=== PATIENT | female | born 1935 | race Caucasian/White ===

== ENCOUNTER 2017-07-21 21:25 | Inpatient (IN) | payer MEDICARE, BC ==
--- NOTE | 2017-07-21 21:35 | ED ---
General Adult HPI - General Stated complaint: Altered Mental Status Time Seen by Provider: 07/21/17 21:31 Source: RN notes reviewed, old records reviewed - History of Present Illness Initial comments: This is a 3-year-old female here for evaluation. Patient closely for evaluation regarding arthrosis, family states she is just on her normal mental state. Patient does answer questions, does know where she is, family states she was not answering all questions well at home. Patient subsequently had a chest pain shortness with her bowel pain, dispensed not taking her medications today. - Related Data Home Medications Medication Instructions Recorded Confirmed Acetaminophen [Tylenol Extra 500 mg PO DAILY PRN 07/21/17 07/21/17 Strength] Anastrozole [Arimidex] 1 mg PO DAILY 07/21/17 07/21/17 Atenolol 25 mg PO DAILY 07/21/17 07/21/17 Budesonide [Pulmicort] 0.5 mg INHALATION RT-BID 07/21/17 07/22/17 Cholecalciferol [Vitamin D3] 1,000 unit PO DAILY 07/21/17 07/21/17 Hydrocodone/Acetaminophen [[place] 1 tab PO DAILY 07/21/17 07/21/17 7.5-325] Ipratropium-Albuterol Nebulize 3 ml INHALATION RT-TID 07/21/17 07/22/17 [Duoneb 0.5 mg-3 mg/3 ml Soln] Omeprazole [PriLOSEC] 20 mg PO DAILY 07/21/17 07/21/17 Simvastatin [Zocor] 20 mg PO SUTH 07/21/17 07/21/17 Zolpidem [Ambien] 10 mg PO HS 07/21/17 07/21/17 predniSONE 1 mg PO Q48H 07/21/17 07/21/17 Previous Rx's Medication Instructions Recorded Cefuroxime [Ceftin] 250 mg PO BID #14 tablet 07/24/17 Insulin Detemir [Levemir Flextouch] 35 unit SQ DAILY #0 07/24/17 Insulin Lispro [humaLOG Kwikpen] 9 unit SQ TID-W/MEALS #0 07/24/17 Losartan [Cozaar] 100 mg PO DAILY #30 tab 07/24/17 Allergies Allergy/AdvReac Type Severity Reaction Status Date / Time cortisone Allergy Rash/Hives Verified 07/21/17 22:21 aspirin AdvReac Unknown Verified 07/21/17 22:21 Review of Systems ROS Statement: Those systems with pertinent positive or pertinent negative responses have been documented in the HPI. ROS Other: All systems not noted in ROS Statement are negative. Past Medical History - Past Family History Mother Family Medical History: Dementia Additional Family Medical History / Comment(s): Mother at age 90 with history of diabetes and hypertension. Father Additional Family Medical History / Comment(s): Father at age 90 possibly just from old age. Brother(s) Additional Family Medical History / Comment(s): Patient has 3 brothers and one sister with strong history of diabetes and hypertension. She has one brother with history of kidney stones. Daughter(s) Additional Family Medical History / Comment(s): Patient has one daughter with history of hypothyroidism, hypertension and hyperlipidemia. Son(s) Additional Family Medical History / Comment(s): Patient has 2 sons and one has history of osteoarthritis and one of bipolar. General Exam General appearance: alert, in no apparent distress Head exam: Present: atraumatic, normocephalic, normal inspection Eye exam: Present: normal appearance, PERRL, EOMI. Absent: scleral icterus, conjunctival injection, periorbital swelling ENT exam: Present: normal exam, mucous membranes moist Neck exam: Present: normal inspection. Absent: tenderness, meningismus, lymphadenopathy Respiratory exam: Present: normal lung sounds bilaterally. Absent: respiratory distress, wheezes, rales, rhonchi, stridor Cardiovascular Exam: Present: regular rate, normal rhythm, normal heart sounds. Absent: systolic murmur, diastolic murmur, rubs, gallop, clicks GI/Abdominal exam: Present: soft, normal bowel sounds. Absent: distended, tenderness, guarding, rebound, rigid Extremities exam: Present: normal inspection, full ROM, normal capillary refill. Absent: tenderness, pedal edema, joint swelling, calf tenderness Back exam: Present: normal inspection Neurological exam: Present: alert, oriented X3, CN II-XII intact Psychiatric exam: Present: normal affect, normal mood Skin exam: Present: warm, dry, intact, normal color. Absent: rash Course Vital Signs 07/21/17 07/21/17 07/21/17 21:50 22:15 22:50 Temperature 97.9 F Pulse Rate 78 74 71 Respiratory 24 22 24 Rate Blood Pressure 164/97 172/70 217/101 O2 Sat by Pulse 99 100 98 Oximetry 07/21/17 07/22/17 23:00 00:00 Temperature 100.2 F H Pulse Rate 72 72 Respiratory 20 Rate Blood Pressure 178/82 160/74 O2 Sat by Pulse 100 99 Oximetry EKG Findings - EKG Comments: EKG Findings:: EKG shows normal sinus rhythm rate of 78, NE 180, QRS 76, QTc 467 Medical Decision Making - Medical Decision Making 82 female the ER for evaluation of altered mental status. Multiple electrolyte abnormalities and severe dehydration. Facial be admitted for resuscitation - Lab Data Result diagrams: 07/23/17 08:29 07/24/17 07:04 Lab Results 07/21/17 07/21/17 07/21/17 Range/Units 21:35 21:36 21:36 WBC 8.5 (3.8-10.6) k/uL RBC 4.34 (3.80-5.40) m/uL Hgb 12.8 (11.4-16.0) gm/dL Hct 39.7 (34.0-46.0) % MCV 91.4 (80.0-100.0) fL MCH 29.5 (25.0-35.0) pg MCHC 32.2 (31.0-37.0) g/dL RDW 13.8 (11.5-15.5) % Plt Count 181 (150-450) k/uL Neutrophils % 67 % Lymphocytes % 21 % Monocytes % 8 % Eosinophils % 1 % Basophils % 0 % Neutrophils # 5.6 (1.3-7.7) k/uL Lymphocytes # 1.8 (1.0-4.8) k/uL Monocytes # 0.6 (0-1.0) k/uL Eosinophils # 0.1 (0-0.7) k/uL Basophils # 0.0 (0-0.2) k/uL Hypochromasia Moderate PT (9.0-12.0) sec INR (<1.2) APTT (22.0-30.0) sec Sodium (137-145) mmol/L Potassium (3.5-5.1) mmol/L Chloride (98-107) mmol/L Carbon Dioxide (22-30) mmol/L Anion Gap mmol/L BUN (7-17) mg/dL Creatinine (0.52-1.04) mg/dL Est GFR (MDRD) Af Amer (>60 ml/min/1.73 sqM) Est GFR (MDRD) Non-Af (>60 ml/min/1.73 sqM) Glucose (74-99) mg/dL POC Glucose (mg/dL) 337 H (75-99) mg/dL POC Glu Support Specialist ID Katharine Bergman Lactic Ac Sepsis Rflx Plasma Lactic Acid Deny (0.7-2.0) mmol/L Calcium (8.4-10.2) mg/dL Phosphorus (2.5-4.5) mg/dL Magnesium (1.6-2.3) mg/dL Total Bilirubin (0.2-1.3) mg/dL AST (14-36) U/L ALT (9-52) U/L Alkaline Phosphatase (38-126) U/L Total Creatine Kinase 136 H (30-135) U/L CK-MB (CK-2) 1.9 (0.0-2.4) ng/mL CK-MB (CK-2) Rel Index 1.4 Troponin I <0.012 (0.000-0.034) ng/mL NT-Pro-B Natriuret Pep pg/mL Total Protein (6.3-8.2) g/dL Albumin (3.5-5.0) g/dL Urine Color Urine Appearance (Clear) Urine pH (5.0-8.0) Ur Specific [place] (1.001-1.035) Urine Protein (Negative) Urine Glucose (UA) (Negative) Urine Ketones (Negative) Urine Blood (Negative) Urine Nitrite (Negative) Urine Bilirubin (Negative) Urine Urobilinogen (<2.0) mg/dL Ur Leukocyte Esterase (Negative) Urine RBC (0-5) /hpf Urine WBC (0-5) /hpf Ur Squamous Epith Cells (0-4) /hpf Hyaline Casts (0-2) /lpf 07/21/17 07/21/17 07/21/17 Range/Units 21:36 21:36 21:36 WBC (3.8-10.6) k/uL RBC (3.80-5.40) m/uL Hgb (11.4-16.0) gm/dL Hct (34.0-46.0) % MCV (80.0-100.0) fL MCH (25.0-35.0) pg MCHC (31.0-37.0) g/dL RDW (11.5-15.5) % Plt Count (150-450) k/uL Neutrophils % % Lymphocytes % % Monocytes % % Eosinophils % % Basophils % % Neutrophils # (1.3-7.7) k/uL Lymphocytes # (1.0-4.8) k/uL Monocytes # (0-1.0) k/uL Eosinophils # (0-0.7) k/uL Basophils # (0-0.2) k/uL Hypochromasia PT (9.0-12.0) sec INR (<1.2) APTT (22.0-30.0) sec Sodium 133 L (137-145) mmol/L Potassium 4.6 (3.5-5.1) mmol/L Chloride 95 L (98-107) mmol/L Carbon Dioxide 25 (22-30) mmol/L Anion Gap 13 mmol/L BUN 26 H (7-17) mg/dL Creatinine 1.89 H (0.52-1.04) mg/dL Est GFR (MDRD) Af Amer 31 (>60 ml/min/1.73 sqM) Est GFR (MDRD) Non-Af 25 (>60 ml/min/1.73 sqM) Glucose 372 H (74-99) mg/dL POC Glucose (mg/dL) (75-99) mg/dL POC Glu Support Specialist ID Lactic Ac Sepsis Rflx Plasma Lactic Acid Deny 3.3 H* (0.7-2.0) mmol/L Calcium 9.5 (8.4-10.2) mg/dL Phosphorus 3.3 (2.5-4.5) mg/dL Magnesium 0.7 L* (1.6-2.3) mg/dL Total Bilirubin 0.5 (0.2-1.3) mg/dL AST 25 (14-36) U/L ALT 32 (9-52) U/L Alkaline Phosphatase 55 (38-126) U/L Total Creatine Kinase (30-135) U/L CK-MB (CK-2) (0.0-2.4) ng/mL CK-MB (CK-2) Rel Index Troponin I (0.000-0.034) ng/mL NT-Pro-B Natriuret Pep 491 pg/mL Total Protein 6.7 (6.3-8.2) g/dL Albumin 4.0 (3.5-5.0) g/dL Urine Color Urine Appearance (Clear) Urine pH (5.0-8.0) Ur Specific [place] (1.001-1.035) Urine Protein (Negative) Urine Glucose (UA) (Negative) Urine Ketones (Negative) Urine Blood (Negative) Urine Nitrite (Negative) Urine Bilirubin (Negative) Urine Urobilinogen (<2.0) mg/dL Ur Leukocyte Esterase (Negative) Urine RBC (0-5) /hpf Urine WBC (0-5) /hpf Ur Squamous Epith Cells (0-4) /hpf Hyaline Casts (0-2) /lpf 07/21/17 07/21/17 07/21/17 Range/Units 21:36 22:40 22:47 WBC (3.8-10.6) k/uL RBC (3.80-5.40) m/uL Hgb (11.4-16.0) gm/dL Hct (34.0-46.0) % MCV (80.0-100.0) fL MCH (25.0-35.0) pg MCHC (31.0-37.0) g/dL RDW (11.5-15.5) % Plt Count (150-450) k/uL Neutrophils % % Lymphocytes % % Monocytes % % Eosinophils % % Basophils % % Neutrophils # (1.3-7.7) k/uL Lymphocytes # (1.0-4.8) k/uL Monocytes # (0-1.0) k/uL Eosinophils # (0-0.7) k/uL Basophils # (0-0.2) k/uL Hypochromasia PT 11.5 (9.0-12.0) sec INR 1.2 H (<1.2) APTT 24.2 (22.0-30.0) sec Sodium (137-145) mmol/L Potassium (3.5-5.1) mmol/L Chloride (98-107) mmol/L Carbon Dioxide (22-30) mmol/L Anion Gap mmol/L BUN (7-17) mg/dL Creatinine (0.52-1.04) mg/dL Est GFR (MDRD) Af Amer (>60 ml/min/1.73 sqM) Est GFR (MDRD) Non-Af (>60 ml/min/1.73 sqM) Glucose (74-99) mg/dL POC Glucose (mg/dL) (75-99) mg/dL POC Glu Support Specialist ID Lactic Ac Sepsis Rflx Y Plasma Lactic Acid Deny (0.7-2.0) mmol/L Calcium (8.4-10.2) mg/dL Phosphorus (2.5-4.5) mg/dL Magnesium (1.6-2.3) mg/dL Total Bilirubin (0.2-1.3) mg/dL AST (14-36) U/L ALT (9-52) U/L Alkaline Phosphatase (38-126) U/L Total Creatine Kinase (30-135) U/L CK-MB (CK-2) (0.0-2.4) ng/mL CK-MB (CK-2) Rel Index Troponin I (0.000-0.034) ng/mL NT-Pro-B Natriuret Pep pg/mL Total Protein (6.3-8.2) g/dL Albumin (3.5-5.0) g/dL Urine Color Yellow Urine Appearance Clear (Clear) Urine pH 6.5 (5.0-8.0) Ur Specific [place] 1.012 (1.001-1.035) Urine Protein 2+ H (Negative) Urine Glucose (UA) 4+ H (Negative) Urine Ketones Negative (Negative) Urine Blood Negative (Negative) Urine Nitrite Negative (Negative) Urine Bilirubin Negative (Negative) Urine Urobilinogen <2.0 (<2.0) mg/dL Ur Leukocyte Esterase Negative (Negative) Urine RBC <1 (0-5) /hpf Urine WBC 1 (0-5) /hpf Ur Squamous Epith Cells <1 (0-4) /hpf Hyaline Casts 3 H (0-2) /lpf - Radiology Data Radiology results: report reviewed (CT brain, x-ray chest negative for acute disease), image reviewed Disposition Clinical Impression: Altered mental status, Hypomagnesemia, ARF (acute renal failure) Disposition: ADMITTED IP TO THIS [facility] Condition: Good
[2017-07-21 21:36] LABS: Glucose,Whole Blood 337 mg/dL (75-99)
[2017-07-21] MEDS ORDERED: SODIUM CHLORIDE 0.9% 1,000 ML IV STA ×2 (21:41→23:40)
[2017-07-21] MEDS ORDERED: SODIUM CHLORIDE 0.9% 500 ML IV STA (21:41)
[2017-07-21] MEDS ORDERED: LABETALOL 5 MG/ML VIAL MDV IVP STA (21:41)
[2017-07-21 22:13] LABS: Appearance,Urine Clear (Clear); Basophils % (A) 0 %; Bilirubin,Urine Negative (Negative); CH 27.9; CHCM 30.6; Eosinophils # (A) 0.1 k/uL (0-0.7); Eosinophils % (A) 1 %; Glucose,Urine (UA) 4+ (Negative); HCT 39.7 % (34.0-46.0); HDW 2.82; HGB 12.8 gm/dL (11.4-16.0); Hypochromasia Moderate; Ketones,Urine Negative (Negative); Leukocyte Esterase,Urine Negative (Negative); Luc # (Auto) 0.31; Luc % (Auto) 4; Lymphocytes # (A) 1.8 k/uL (1.0-4.8); Lymphocytes % (A) 21 %; MCH 29.5 pg (25.0-35.0); MCHC 32.2 g/dL (31.0-37.0); MCV 91.4 fL (80.0-100.0); Mean Platelet Volume 7.1; Monocytes # (A) 0.6 k/uL (0-1.0); Monocytes % (A) 8 %; Neutrophils # (A) 5.6 k/uL (1.3-7.7); Neutrophils % (A) 67 %; Nitrite,Urine Negative (Negative); PH, Urine 6.5 (5.0-8.0); Particle Count 6660; Protein,Urine 2+ (Negative); RBC 4.34 m/uL (3.80-5.40); RBC,Urine <1 /hpf (0-5); RDW 13.8 % (11.5-15.5); Specific Gravity,Urine 1.012 (1.001-1.035); Squamous Epithelial Cell,Urine <1 /hpf (0-4); UA Billing (MACRO vs. MICRO) MICRO; Urobilinogen,Urine <2.0 mg/dL (<2.0); WBC 8.5 k/uL (3.8-10.6); WBC (Perox) 7.97; WBC,Urine 1 /hpf (0-5)
[2017-07-21 22:20] LABS: Calcium 9.5 mg/dL (8.4-10.2); Phosphorous 3.3 mg/dL (2.5-4.5); Potassium 4.6 mmol/L (3.5-5.1); Total Bilirubin 0.5 mg/dL (0.2-1.3); Total Protein 6.7 g/dL (6.3-8.2)
[2017-07-21 22:26] LABS: Magnesium 0.7 mg/dL (1.6-2.3)
[2017-07-21 22:35] LABS: Creatine Kinase 136 U/L (30-135)
--- NOTE | 2017-07-21 22:45 | XR ---
EXAM: XR Chest, 2 Views CLINICAL HISTORY: Reason: Weakness TECHNIQUE: Frontal and lateral views of the chest. COMPARISON: No relevant prior studies available. FINDINGS: Lungs: Prominent lung markings. No focal consolidation. Pleural space: Unremarkable. No pneumothorax. Heart: Borderline enlarged cardiomediastinal silhouette. Mediastinum: See above. Bones/joints: Postsurgical changes in the left shoulder and right anterior chest. Other findings: Senescent changes. IMPRESSION: Prominent lung markings. No focal consolidation.
[2017-07-21 22:47] LABS: Creatine Kinase MB 1.9 ng/mL (0.0-2.4); Troponin I <0.012 ng/mL (0.000-0.034)
[2017-07-21] MEDS: MAGNESIUM SULFATE-D5W PMX 1 GM in DEXTROSE/WATER 1 100ML.BAG IVPB SCH (23:02)
[2017-07-21 23:13] LABS: INR 1.2 (<1.2); Partial Thromboplastin Time 24.2 sec (22.0-30.0); Prothrombin Time 11.5 sec (9.0-12.0)
[2017-07-21] MEDS ORDERED: FLUCONAZOLE 150 MG TAB PO STA (23:27)
--- NOTE | 2017-07-21 23:39 | CT ---
EXAM: CT Head Without Intravenous Contrast CLINICAL HISTORY: Reason: weakness TECHNIQUE: Axial computed tomography images of the head/brain without intravenous contrast. CTDI is 59.58 mGy and DLP is 1103 mGy-cm. This CT exam was performed using one or more of the following dose reduction techniques: automated exposure control, adjustment of the mA and/or kV according to patient size, and/or use of iterative reconstruction technique. COMPARISON: None. FINDINGS: Brain: Evaluation limited by artifact. Scattered mild white matter hypoattenuation, which is nonspecific but is likely secondary to chronic microvascular ischemic change. No midline shift, mass effect, or hemorrhage. No acute cortical infarct. Ventricles: Unremarkable. Bones/joints: Hyperostosis frontalis interna, a benign finding. No acute fracture. Soft tissues: Unremarkable. Vasculature: Cerebrovascular atherosclerosis. Sinuses: Minimal sinus disease. Mastoid air cells: Small mastoid fluid. IMPRESSION: 1. No acute intracranial process. If there is concern for acute ischemia, MRI may be considered. 2. Chronic changes as above.
[2017-07-21] MEDS ORDERED: SODIUM CHLORIDE 0.9% 1,000 ML IV ONE (23:40)
[2017-07-21] MEDS ORDERED: ACETAMINOPHEN TAB 325 MG TAB PO PRN (23:55)
[2017-07-22 02:02] LABS: Glucose,Whole Blood 311 mg/dL (75-99)
[2017-07-22] MEDS: MAGNESIUM SULFATE-D5W PMX 1 GM in DEXTROSE/WATER 1 100ML.BAG IVPB SCH ×3 (02:06→05:16)
[2017-07-22] MEDS: INSULIN LISPRO (humaLOG) 300 UNIT/3 ML VIAL SQ SCH ×7 (02:08→20:49)
[2017-07-22 07:25] LABS: Glucose,Whole Blood 225 mg/dL (75-99)
[2017-07-22] MEDS ORDERED: ENOXAPARIN 40 MG/0.4 ML SYRINGE SQ SCH (09:00)
[2017-07-22 11:05] LABS: Hemoglobin A1C 11.1 % (4.2-6.1)
[2017-07-22] MEDS ORDERED: ACETAMINOPHEN TAB 500 MG TAB PO PRN (11:27)
[2017-07-22 12:31] LABS: Glucose,Whole Blood 200 mg/dL (75-99)
[2017-07-22] MEDS: ANASTROZOLE 1 MG TAB PO SCH (13:28)
[2017-07-22] MEDS: ATENOLOL 25 MG TAB PO SCH (13:28)
[2017-07-22] MEDS: FLUCONAZOLE 150 MG TAB PO SCH (13:28)
[2017-07-22] MEDS: LOSARTAN 50 MG TAB PO SCH (13:28)
[2017-07-22] MEDS: predniSONE 1 MG TAB PO SCH (13:28)
--- NOTE | 2017-07-22 14:12 | P.HPIM ---
History of Present Illness H&P Date: 07/22/17 Chief Complaint: Mental status changes This is an 82-year-old female patient of Dr. Jorge Quevedo with a past medical history for diabetes mellitus type 2, hypertension, rheumatoid arthritis, breast cancer status post lumpectomy on the right with lymph node dissection which were negative. She had to have repeat surgery to complete margins. She has refused radiation treatment. Patient just saw Dr. Quevedo on for bladder infection and started on ciprofloxacin. Insulins were adjusted so that she would take Levemir 80 units daily and Humalog 20 units with supper. Her states that she went to bed and was sleeping and he went into the bedroom to check on her. She was trying to get out of bed and he could not help her if she was too heavy. He called his daughter. The patient did not recognize her or her daughter and 911 was called and patient was brought into [facility] emergency center for evaluation. Her blood sugar was 396 by EMS and BUN was found to be 26 with a creatinine of 1.89. Patient was admitted to the Medr floor for acute renal failure and metabolic encephalopathy and urinary tract infection. She will be continued on Rocephin. Patient states her mental status is much improved today and she is feeling back to her normal self. She was started on Diflucan for vaginal yeast infection as well. Review of Systems All systems: negative Constitutional: Reports lethargy, Reports malaise, Reports weakness, Denies chills, Denies fatigue, Denies fever Eyes: denies blurred vision, denies pain Ears, nose, mouth and throat: Denies dental pain, Denies headache, Denies mouth pain, Denies sore throat Cardiovascular: Denies chest pain, Denies decreased exercise tolerance, Denies dyspnea on exertion, Denies edema, Denies leg edema, Denies lightheadedness, Denies shortness of breath, Denies syncope Respiratory: Denies cough, Denies cough with sputum, Denies dyspnea, Denies excessive sputum, Denies hemoptysis, Denies home oxygen, Denies wheezing Gastrointestinal: Denies abdominal pain, Denies diarrhea, Denies nausea, Denies vomiting Genitourinary: Reports dysuria, Denies hematuria Musculoskeletal: Denies myalgias Integumentary: Denies pruritus, Denies rash, Denies wounds Neurological: Reports confusion, Reports gait dysfunction, Denies numbness, Denies weakness Psychiatric: Denies anxiety, Denies depression Endocrine: Denies fatigue, Denies weight change Past Medical History Past Medical History: Cancer, Diabetes Mellitus, Hypertension, Rheumatoid Arthritis (RA) Additional Past Medical History / Comment(s): breast cancer History of Any Multi-Drug Resistant Organisms: None Reported Past Surgical History: Joint Replacement Additional Past Surgical History / Comment(s): left shoulder replacement, right breast lumpectomy and lymph node removal with repeat surgery to obtain full margins, left total knee arthroplasty 2, bilateral cataract removal and intraocular lens implants, right eye had an injection recently Past Anesthesia/Blood Transfusion Reactions: No Reported Reaction Past Psychological History: No Psychological Hx Reported Smoking Status: Former smoker Past Alcohol Use History: None Reported Additional Past Alcohol Use History / Comment(s): Patient was a smoker one pack per day for 30 years and quit in 1995. She denies any alcohol use. She resides at home with her and they recently moved to [facility] and have home care in place. Past Drug Use History: None Reported - Past Family History Mother Family Medical History: Dementia Additional Family Medical History / Comment(s): Mother at age 90 with history of diabetes and hypertension. Father Additional Family Medical History / Comment(s): Father at age 90 possibly just from old age. Brother(s) Additional Family Medical History / Comment(s): Patient has 3 brothers and one sister with strong history of diabetes and hypertension. She has one brother with history of kidney stones. Daughter(s) Additional Family Medical History / Comment(s): Patient has one daughter with history of hypothyroidism, hypertension and hyperlipidemia. Son(s) Additional Family Medical History / Comment(s): Patient has 2 sons and one has history of osteoarthritis and one of bipolar. Medications and Allergies Home Medications Medication Instructions Recorded Confirmed Type Acetaminophen [Tylenol Extra 500 mg PO DAILY PRN 07/21/17 07/21/17 History Strength] Anastrozole [Arimidex] 1 mg PO DAILY 07/21/17 07/21/17 History Atenolol 25 mg PO DAILY 07/21/17 07/21/17 History Budesonide [Pulmicort] 0.5 mg INHALATION RT-BID 07/21/17 07/22/17 History Cholecalciferol [Vitamin D3] 1,000 unit PO DAILY 07/21/17 07/21/17 History Ciprofloxacin HCl [Cipro] 500 mg PO BID 07/21/17 07/21/17 History Hydrocodone/Acetaminophen [[place] 1 tab PO DAILY 07/21/17 07/21/17 History 7.5-325] Insulin Detemir [Levemir Flextouch] 80 unit SQ DAILY 07/21/17 07/21/17 History Insulin Lispro [humaLOG Kwikpen] 20 unit SQ W/SUPPER 07/21/17 07/21/17 History Ipratropium-Albuterol Nebulize 3 ml INHALATION RT-TID 07/21/17 07/22/17 History [Duoneb 0.5 mg-3 mg/3 ml Soln] Losartan/Hydrochlorothiazide 1 tab PO DAILY 07/21/17 07/21/17 History [Hyzaar 100-25 Tablet] Omeprazole [PriLOSEC] 20 mg PO DAILY 07/21/17 07/21/17 History Simvastatin [Zocor] 20 mg PO SUTH 07/21/17 07/21/17 History Zolpidem [Ambien] 10 mg PO HS 07/21/17 07/21/17 History predniSONE 1 mg PO Q48H 07/21/17 07/21/17 History Allergies Allergy/AdvReac Type Severity Reaction Status Date / Time cortisone Allergy Rash/Hives Verified 07/21/17 22:21 aspirin AdvReac Unknown Verified 07/21/17 22:21 Physical Exam Vitals: Vital Signs Temp Pulse Pulse Resp BP BP Pulse Ox 07/22/17 07:00 97.6 F 59 L 16 156/79 100 07/22/17 02:48 16 07/22/17 00:29 97.1 F L 73 16 153/83 98 07/22/17 00:00 100.2 F H 72 20 160/74 99 07/21/17 23:00 72 178/82 100 07/21/17 22:50 71 24 217/101 98 07/21/17 22:15 74 22 172/70 100 07/21/17 21:50 97.9 F 78 24 164/97 99 Intake and Output 07/21/17 07/22/17 07/22/17 22:59 06:59 14:59 Other: Voiding Method Bedpan # Voids 4 1 Weight 90.718 kg Gen: This is an 82-year-old female. She is sitting up in bed and appears to be comfortable. No acute distress noted. HEENT: Head is atraumatic, normocephalic. Pupils equal, round. Sclerae is anicteric. Conjunctiva slightly pale. Extremities of the mouth are slightly dry. NECK: Supple. No JVD. No lymphadenopathy. No thyromegaly. LUNGS: Clear to auscultation. No wheezes or rhonchi. No intercostal retractions. HEART: Regular rate and rhythm. No murmur. ABDOMEN: Soft. Bowel sounds are present. No masses. No tenderness. EXTREMITIES: No pedal edema. No calf tenderness. Dorsalis pedis +2 bilaterally. NEUROLOGICAL: Patient is awake, alert and oriented x3. Cranial nerves 2 through 12 are grossly intact. Results CBC & Chem 7: 07/21/17 21:36 07/21/17 21:36 Labs: Abnormal Lab Results - Last 24 Hours (Table) 07/21/17 07/21/17 07/21/17 Range/Units 21:35 21:36 21:36 INR (<1.2) Sodium 133 L (137-145) mmol/L Chloride 95 L (98-107) mmol/L BUN 26 H (7-17) mg/dL Creatinine 1.89 H (0.52-1.04) mg/dL Glucose 372 H (74-99) mg/dL POC Glucose (mg/dL) 337 H (75-99) mg/dL Hemoglobin A1c (4.2-6.1) % Plasma Lactic Acid Deny (0.7-2.0) mmol/L Magnesium 0.7 L* (1.6-2.3) mg/dL Total Creatine Kinase 136 H (30-135) U/L Urine Protein (Negative) Urine Glucose (UA) (Negative) Hyaline Casts (0-2) /lpf 07/21/17 07/21/17 07/21/17 Range/Units 21:36 21:36 22:47 INR 1.2 H (<1.2) Sodium (137-145) mmol/L Chloride (98-107) mmol/L BUN (7-17) mg/dL Creatinine (0.52-1.04) mg/dL Glucose (74-99) mg/dL POC Glucose (mg/dL) (75-99) mg/dL Hemoglobin A1c (4.2-6.1) % Plasma Lactic Acid Deny 3.3 H* (0.7-2.0) mmol/L Magnesium (1.6-2.3) mg/dL Total Creatine Kinase (30-135) U/L Urine Protein 2+ H (Negative) Urine Glucose (UA) 4+ H (Negative) Hyaline Casts 3 H (0-2) /lpf 07/22/17 07/22/17 07/22/17 Range/Units 01:55 01:59 07:06 INR (<1.2) Sodium (137-145) mmol/L Chloride (98-107) mmol/L BUN (7-17) mg/dL Creatinine (0.52-1.04) mg/dL Glucose (74-99) mg/dL POC Glucose (mg/dL) 311 H 225 H (75-99) mg/dL Hemoglobin A1c 11.1 H (4.2-6.1) % Plasma Lactic Acid Deny (0.7-2.0) mmol/L Magnesium (1.6-2.3) mg/dL Total Creatine Kinase (30-135) U/L Urine Protein (Negative) Urine Glucose (UA) (Negative) Hyaline Casts (0-2) /lpf Microbiology - Last 24 Hours (Table) 07/21/17 21:36 Urine Culture - Preliminary Urine,Catheterized Thrombosis Risk Factor Assmnt - DVT/VTE Prophylaxis DVT/VTE Prophylaxis: Pharmacologic Prophylaxis ordered - Choose All That Apply Each Factor Represents 1 point: Obesity (BMI >25) Thrombosis Risk Factor Assessment Total Risk Factor Score: 1 Thrombosis Risk Factor Assessment Level: Low Risk Assessment and Plan Plan: 1. Metabolic encephalopathy secondary to urinary tract infection, urgent hypertension requiring IV labetalol and acute kidney injury. Patient's mental status is near baseline. 2. Urinary tract infection with possible early sepsis status post IV fluid resuscitation. Patient was on ciprofloxacin which will be discontinued. Ceftriaxone will be continued. Urine culture is in progress. 3. Urgent hypertension in patient with history of hypertension. Patient was given labetalol in the emergency center. Continue atenolol 25 mg daily, losartan 100 mg daily. Hydrochlorothiazide discontinued. 4. Acute kidney injury. Hydrochlorothiazide discontinued. Continue gentle rehydration. Recheck lab work in the morning. 5. Vaginal yeast infection. Diflucan 150 mg daily 3 doses. 6. Diabetes mellitus type 2, insulin requiring. Levemir will be changed to 30 units daily continue Humalog at 9 units with meals and per scale. 7. Breast cancer. Continue Arimidex 1 mg daily. 8. Hyperlipidemia. Continue Lipitor 10 mg twice weekly. 9. Mild persistent asthma. Continue DuoNeb treatments and Pulmicort. 10. Gastroesophageal reflux disease. Continue Prilosec 20 mg daily. 11. Rheumatoid arthritis. Continue prednisone 1 mg every 48 hours. 12. DVT prophylaxis. Continue Lovenox 30 mg daily, dose adjusted for renal function. Patient will be admitted to the hospital for a minimum of 2 night stay. Discharge plan: Most likely return home with homecare. PT and OT. Impression and plan of care have been directed as dictated by the signing physician. Tati Hutton nurse practitioner acting as scribe for signing physician.
[2017-07-22 16:48] LABS: Glucose,Whole Blood 160 mg/dL (75-99)
[2017-07-22] MEDS: SODIUM CHLORIDE 0.9% 1,000 ML IV SCH (18:25)
[2017-07-22] MEDS: INSULIN DETEMIR 100 UNIT/ML 10 ML VIAL SQ SCH (18:25)
[2017-07-22] MEDS: IPRATROPIUM-ALBUTEROL 3 ML NEB INHALATION SCH (19:16)
[2017-07-22] MEDS: BUDESONIDE 0.5 MG/2 ML NEBU INHALATION SCH (19:16)
[2017-07-22] MEDS: HYDROcodone/APAP 7.5-325MG 1 EACH TAB PO SCH (20:49)
[2017-07-22 20:50] LABS: Glucose,Whole Blood 350 mg/dL (75-99)
[2017-07-22] MEDS: ZOLPIDEM 10 MG TAB PO SCH (20:50)
[2017-07-23] MEDS: IPRATROPIUM-ALBUTEROL 3 ML NEB INHALATION SCH ×3 (07:17→19:59)
[2017-07-23] MEDS: BUDESONIDE 0.5 MG/2 ML NEBU INHALATION SCH ×2 (07:17→19:59)
[2017-07-23 07:18] LABS: Glucose,Whole Blood 111 mg/dL (75-99)
[2017-07-23] MEDS: ATENOLOL 25 MG TAB PO SCH (08:02)
[2017-07-23] MEDS: LOSARTAN 50 MG TAB PO SCH (08:02)
[2017-07-23] MEDS: CHOLECALCIFEROL 1,000 UNIT TAB PO SCH (08:02)
[2017-07-23] MEDS: HYDROcodone/APAP 7.5-325MG 1 EACH TAB PO SCH ×2 (08:03→20:33)
[2017-07-23] MEDS: INSULIN LISPRO (humaLOG) 300 UNIT/3 ML VIAL SQ SCH ×8 (08:03→22:40)
[2017-07-23] MEDS: FLUCONAZOLE 150 MG TAB PO SCH (08:03)
[2017-07-23] MEDS: ANASTROZOLE 1 MG TAB PO SCH (08:03)
[2017-07-23] MEDS: INSULIN DETEMIR 100 UNIT/ML 10 ML VIAL SQ SCH (08:04)
[2017-07-23] MEDS: ENOXAPARIN 30 MG/0.3 ML SYRINGE SQ SCH (08:04)
[2017-07-23 08:21] VITALS: RESP 16
[2017-07-23] MEDS ORDERED: INSULIN DETEMIR 100 UNIT/ML 10 ML VIAL SQ SCH (09:00)
[2017-07-23] MEDS ORDERED: ATORVASTATIN 10 MG TAB PO SCH (09:00)
[2017-07-23 09:49] LABS: Calcium 9.1 mg/dL (8.4-10.2); Potassium 4.2 mmol/L (3.5-5.1)
[2017-07-23 10:02] LABS: CH 28.9; CHCM 31.6; HCT 37.6 % (34.0-46.0); HDW 2.74; HGB 11.8 gm/dL (11.4-16.0); Hypochromasia Slight; MCH 28.8 pg (25.0-35.0); MCHC 31.4 g/dL (31.0-37.0); MCV 91.7 fL (80.0-100.0); Mean Platelet Volume 7.8; RDW 14.4 % (11.5-15.5); WBC 7.8 k/uL (3.8-10.6)
--- NOTE | 2017-07-23 11:15 | P.PN ---
Subjective This is an 82-year-old female patient of Dr. Jorge Quevedo with a past medical history for diabetes mellitus type 2, hypertension, rheumatoid arthritis, breast cancer status post lumpectomy on the right with lymph node dissection which were negative. She had to have repeat surgery to complete margins. She has refused radiation treatment. Patient just saw Dr. Quevedo on for bladder infection and started on ciprofloxacin. Insulins were adjusted so that she would take Levemir 80 units daily and Humalog 20 units with supper. Her states that she went to bed and was sleeping and he went into the bedroom to check on her. She was trying to get out of bed and he could not help her if she was too heavy. He called his daughter. The patient did not recognize her or her daughter and 911 was called and patient was brought into [facility] emergency center for evaluation. Her blood sugar was 396 by EMS and BUN was found to be 26 with a creatinine of 1.89. Patient was admitted to the [facility]Sur floor for acute renal failure and metabolic encephalopathy and urinary tract infection. She will be continued on Rocephin. Patient states her mental status is much improved today and she is feeling back to her normal self. She was started on Diflucan for vaginal yeast infection as well. 07/23: Patient states that she slept all night but is still sleepy be this morning. She denies any chest pain or shortness of breath. She okay this morning. She did have a bowel movement she states a vaginal yeast infection is improved. Plan is to increase oral intake and increase activity today. PT has recommended home with homecare. Urine culture remains in progress and patient is on Rocephin. Anticipate discharge in the next 24-48 hours. Objective - Vital Signs Vital signs: Vital Signs Temp 97.8 F 07/23/17 07:00 Pulse 60 07/23/17 07:30 Resp 16 07/23/17 07:00 BP 163/76 07/23/17 07:00 Pulse Ox 97 07/23/17 07:00 Intake & Output 07/22/17 07/23/17 07/23/17 18:59 06:59 18:59 Intake Total 600 800 Balance 600 800 Intake: Intake, IV Titration 800 Amount Sodium Chloride 0.9% 1, 800 000 ml @ 100 mls/hr IV . Q10H STA Rx#:[id number] Oral 600 Other: # Voids 2 2 - Exam Gen: This is an 82-year-old female. She is sitting up in bed and appears to be comfortable. No acute distress noted. HEENT: Head is atraumatic, normocephalic. Pupils equal, round. Sclerae is anicteric. Conjunctiva slightly pale. Extremities of the mouth are slightly dry. NECK: Supple. No JVD. No lymphadenopathy. No thyromegaly. LUNGS: Clear to auscultation. No wheezes or rhonchi. No intercostal retractions. HEART: Regular rate and rhythm. No murmur. ABDOMEN: Soft. Bowel sounds are present. No masses. No tenderness. EXTREMITIES: No pedal edema. No calf tenderness. Dorsalis pedis +2 bilaterally. NEUROLOGICAL: Patient is awake, alert and oriented x3. Cranial nerves 2 through 12 are grossly intact. - Labs CBC & Chem 7: 07/23/17 08:29 07/23/17 08:29 Labs: Abnormal Lab Results - Last 24 Hours (Table) 07/22/17 07/22/17 07/22/17 Range/Units 01:55 12:24 16:46 Creatinine (0.52-1.04) mg/dL Glucose (74-99) mg/dL POC Glucose (mg/dL) 200 H 160 H (75-99) mg/dL Hemoglobin A1c 11.1 H (4.2-6.1) % 07/22/17 07/23/17 07/23/17 Range/Units 20:49 06:52 08:29 Creatinine 1.35 H (0.52-1.04) mg/dL Glucose 183 H (74-99) mg/dL POC Glucose (mg/dL) 350 H 111 H (75-99) mg/dL Hemoglobin A1c (4.2-6.1) % Microbiology - Last 24 Hours (Table) 07/21/17 21:36 Urine Culture - Preliminary Urine,Catheterized Assessment and Plan Plan: 1. Metabolic encephalopathy secondary to urinary tract infection, urgent hypertension requiring IV labetalol and acute kidney injury. Patient's mental status is near baseline. 2. Urinary tract infection with possible early sepsis status post IV fluid resuscitation. Patient was on ciprofloxacin which will be discontinued. Ceftriaxone will be continued. Urine culture is in progress. 3. Urgent hypertension in patient with history of hypertension. Patient was given labetalol in the emergency center. Continue atenolol 25 mg daily, losartan 100 mg daily. Hydrochlorothiazide discontinued. 4. Acute kidney injury. Hydrochlorothiazide discontinued. Continue gentle rehydration. Recheck lab work in the morning. 5. Vaginal yeast infection. Diflucan 150 mg daily 3 doses. 6. Diabetes mellitus type 2, insulin requiring. Levemir will be changed to 30 units daily continue Humalog at 9 units with meals and per scale. 7. Breast cancer. Continue Arimidex 1 mg daily. 8. Hyperlipidemia. Continue Lipitor 10 mg twice weekly. 9. Mild persistent asthma. Continue DuoNeb treatments and Pulmicort. 10. Gastroesophageal reflux disease. Continue Prilosec 20 mg daily. 11. Rheumatoid arthritis. Continue prednisone 1 mg every 48 hours. 12. DVT prophylaxis. Continue Lovenox 30 mg daily, dose adjusted for renal function. Discharge plan: Most likely return home with homecare. PT and OT. Impression and plan of care have been directed as dictated by the signing physician. Tati Hutton nurse practitioner acting as scribe for signing physician.
[2017-07-23] MEDS: SODIUM CHLORIDE 0.9% 1,000 ML IV SCH (11:24)
[2017-07-23 12:03] LABS: Glucose,Whole Blood 124 mg/dL (75-99)
[2017-07-23 12:58] VITALS: BMI 34.3
[2017-07-23 16:54] LABS: Glucose,Whole Blood 152 mg/dL (75-99)
[2017-07-23 20:55] LABS: Glucose,Whole Blood 104 mg/dL (75-99)
[2017-07-24] MEDS: ZOLPIDEM 10 MG TAB PO SCH (01:52)
[2017-07-24 07:32] LABS: Glucose,Whole Blood 183 mg/dL (75-99)
[2017-07-24 07:41] VITALS: BP 148/69; TEMP 97.7
[2017-07-24] MEDS: FLUCONAZOLE 150 MG TAB PO SCH (07:57)
[2017-07-24] MEDS: LOSARTAN 50 MG TAB PO SCH (07:57)
[2017-07-24] MEDS: INSULIN LISPRO (humaLOG) 300 UNIT/3 ML VIAL SQ SCH ×4 (07:57→12:33)
[2017-07-24] MEDS: ENOXAPARIN 30 MG/0.3 ML SYRINGE SQ SCH (07:57)
[2017-07-24] MEDS: HYDROcodone/APAP 7.5-325MG 1 EACH TAB PO SCH (07:58)
[2017-07-24] MEDS: CHOLECALCIFEROL 1,000 UNIT TAB PO SCH (07:58)
[2017-07-24] MEDS: ANASTROZOLE 1 MG TAB PO SCH (07:58)
[2017-07-24] MEDS: ATENOLOL 25 MG TAB PO SCH (07:58)
[2017-07-24] MEDS: SODIUM CHLORIDE 0.9% 1,000 ML IV SCH (07:59)
[2017-07-24] MEDS: INSULIN DETEMIR 100 UNIT/ML 10 ML VIAL SQ SCH (07:59)
[2017-07-24] MEDS: BUDESONIDE 0.5 MG/2 ML NEBU INHALATION SCH (08:17)
[2017-07-24] MEDS: IPRATROPIUM-ALBUTEROL 3 ML NEB INHALATION SCH (08:17)
[2017-07-24 08:27] LABS: Calcium 9.4 mg/dL (8.4-10.2); Potassium 4.4 mmol/L (3.5-5.1)
[2017-07-24 08:33] VITALS: PULSE 56
[2017-07-24 11:59] LABS: Glucose,Whole Blood 90 mg/dL (75-99)
[2017-07-24] MEDS: predniSONE 1 MG TAB PO SCH (12:32)
--- NOTE | 2017-07-26 08:32 | P.DS ---
Providers Date of admission: 07/21/17 23:41 Expected date of discharge: 07/24/17 Attending physician: Bella Dalal Primary care physician: Jorge Quevedo [facility] Course: This is an 82-year-old female patient of Dr. Jorge Quevedo with a past medical history for diabetes mellitus type 2, hypertension, rheumatoid arthritis, breast cancer status post lumpectomy on the right with lymph node dissection which were negative. She had to have repeat surgery to complete margins. She has refused radiation treatment. Patient just saw Dr. Quevedo on for bladder infection and started on ciprofloxacin. Insulins were adjusted so that she would take Levemir 80 units daily and Humalog 20 units with supper. Her states that she went to bed and was sleeping and he went into the bedroom to check on her. She was trying to get out of bed and he could not help her if she was too heavy. He called his daughter. The patient did not recognize her or her daughter and 911 was called and patient was brought into [facility] emergency center for evaluation. Her blood sugar was 396 by EMS and BUN was found to be 26 with a creatinine of 1.89. Patient was admitted to the [facility] floor for acute renal failure and metabolic encephalopathy and urinary tract infection. She will be continued on Rocephin. Patient states her mental status is much improved today and she is feeling back to her normal self. She was started on Diflucan for vaginal yeast infection as well. 07/23: Patient states that she slept all night but is still sleepy be this morning. She denies any chest pain or shortness of breath. She okay this morning. She did have a bowel movement she states a vaginal yeast infection is improved. Plan is to increase oral intake and increase activity today. PT has recommended home with homecare. Urine culture remains in progress and patient is on Rocephin. Anticipate discharge in the next 24-48 hours. 07/24: Urine culture was finalized with no growth at 18 hours. Patient denies any new complaints. BUN is 18 and creatinine 1.17. Patient will be discharged home today in stable condition. Patient will not be resumed back on hydrochlorothiazide. Insulin dosing has been changed from what she was on previously. Discharge diagnoses: 1. Metabolic encephalopathy secondary to urinary tract infection, urgent hypertension and acute kidney injury. 2. Urinary tract infection with possible early sepsis status post IV fluid resuscitation. 3. Urgent hypertension in patient with history of hypertension. 4. Acute kidney injury. 5. Vaginal yeast infection. 6. Diabetes mellitus type 2, insulin requiring. 7. Breast cancer. 8. Hyperlipidemia. 9. Mild persistent asthma. 10. Gastroesophageal reflux disease. 11. Rheumatoid arthritis. Discharge plan: Most likely return home with homecare. PT and OT. Impression and plan of care have been directed as dictated by the signing physician. Tati Hutton nurse practitioner acting as scribe for signing physician. Cc: Dr. Jorge Quevedo Patient Condition at Discharge: Good Plan - Discharge Summary New Discharge Prescriptions: New Cefuroxime [Ceftin] 250 mg PO BID #14 tablet Losartan [Cozaar] 100 mg PO DAILY #30 tab Continue Zolpidem [Ambien] 10 mg PO HS predniSONE 1 mg PO Q48H Simvastatin [Zocor] 20 mg PO SUTH Cholecalciferol [Vitamin D3] 1,000 unit PO DAILY Acetaminophen [Tylenol Extra Strength] 500 mg PO DAILY PRN PRN Reason: Pain Anastrozole [Arimidex] 1 mg PO DAILY Omeprazole [PriLOSEC] 20 mg PO DAILY Ipratropium-Albuterol Nebulize [Duoneb 0.5 mg-3 mg/3 ml Soln] 3 ml INHALATION RT-TID Hydrocodone/Acetaminophen [[place] 7.5-325] 1 tab PO DAILY Atenolol 25 mg PO DAILY Budesonide [Pulmicort] 0.5 mg INHALATION RT-BID Changed Insulin Detemir [Levemir Flextouch] 35 unit SQ DAILY #0 Insulin Lispro [humaLOG Kwikpen] 9 unit SQ TID-W/MEALS #0 Discontinued Losartan/Hydrochlorothiazide [Hyzaar 100-25 Tablet] 1 tab PO DAILY Ciprofloxacin HCl [Cipro] 500 mg PO BID Discharge Medication List Acetaminophen [Tylenol Extra Strength] 500 mg PO DAILY PRN 07/21/17 [History] Anastrozole [Arimidex] 1 mg PO DAILY 07/21/17 [History] Atenolol 25 mg PO DAILY 07/21/17 [History] Budesonide [Pulmicort] 0.5 mg INHALATION RT-BID 07/21/17 [History] Cholecalciferol [Vitamin D3] 1,000 unit PO DAILY 07/21/17 [History] Hydrocodone/Acetaminophen [[place] 7.5-325] 1 tab PO DAILY 07/21/17 [History] Ipratropium-Albuterol Nebulize [Duoneb 0.5 mg-3 mg/3 ml Soln] 3 ml INHALATION RT -TID 07/21/17 [History] Omeprazole [PriLOSEC] 20 mg PO DAILY 07/21/17 [History] Simvastatin [Zocor] 20 mg PO SUTH 07/21/17 [History] Zolpidem [Ambien] 10 mg PO HS 07/21/17 [History] predniSONE 1 mg PO Q48H 07/21/17 [History] Cefuroxime [Ceftin] 250 mg PO BID #14 tablet 07/24/17 [Rx] Insulin Detemir [Levemir Flextouch] 35 unit SQ DAILY #0 07/24/17 [Rx] Insulin Lispro [humaLOG Kwikpen] 9 unit SQ TID-W/MEALS #0 07/24/17 [Rx] Losartan [Cozaar] 100 mg PO DAILY #30 tab 07/24/17 [Rx] Follow up Appointment(s)/Referral(s): Hesham Laal MD [REFERRING] - 1 Week (please call for appointment, office closed. ) Patient Instructions/Handouts: Type 2 Diabetes in Adults (DC) Discharge Disposition: HOME SELF-CARE
== END 2017-07-24 13:09 | disposition home or self-care (01) | DRG 871 ==
LOC: EC 21:25 → 4MS4W 23:41
PROVIDERS: ADMIT Internal Medicine; ATTEND Internal Medicine
DX: A41.9 Sepsis, unspecified organism (principal); G93.41 Metabolic encephalopathy; N17.9 Acute kidney failure, unspecified; E11.9 Type 2 diabetes mellitus without complications; B37.3 Candidiasis of vulva and vagina; I10 Essential (primary) hypertension; N39.0 Urinary tract infection, site not specified; E83.42 Hypomagnesemia; E86.0 Dehydration; E78.5 Hyperlipidemia, unspecified; J45.30 Mild persistent asthma, uncomplicated; K21.9 Gastro-esophageal reflux disease without esophagitis; M06.9 Rheumatoid arthritis, unspecified; M19.90 Unspecified osteoarthritis, unspecified site; Z79.4 Long term (current) use of insulin; Z79.811 Long term (current) use of aromatase inhibitors; Z79.899 Other long term (current) drug therapy; Z82.49 Family history of ischemic heart disease and other diseases of the circulatory system; Z83.3 Family history of diabetes mellitus; Z85.3 Personal history of malignant neoplasm of breast; Z87.891 Personal history of nicotine dependence; Z96.1 Presence of intraocular lens; Z96.612 Presence of left artificial shoulder joint; Z96.652 Presence of left artificial knee joint
CPT/HCPCS: 36415; 51701; 70450; 71020; 80048; 80053; 81001; 82550; 82553; 83036; 83605; 83735; 83880; 84100; 84484; 85025; 85027; 85610; 85730; 87086; 93005; 94640; 96361; 96365; 96375; 99285

== ENCOUNTER 2017-08-14 10:22 | Inpatient (IN) | payer MEDICARE, BC ==
[2017-08-14] MEDS ORDERED: SODIUM CHLORIDE 0.9% 1,000 ML IV STA (10:39)
[2017-08-14] MEDS ORDERED: SODIUM CHLORIDE 0.9% 500 ML IV STA (10:39)
[2017-08-14] MEDS ORDERED: LABETALOL 5 MG/ML VIAL MDV IVP STA ×2 (11:25→14:32)
--- NOTE | 2017-08-14 11:25 | ED ---
General Adult HPI - General Chief complaint: Altered Mental Status Stated complaint: confusion, poss cva Time Seen by Provider: 08/14/17 10:39 Source: patient, family, RN notes reviewed, old records reviewed Mode of arrival: wheelchair Limitations: no limitations - History of Present Illness Initial comments: This is a 2-year-old female ER for evaluation of altered mental state. Patient' s by my family for not acting appropriately. Patient does have recent hospital admission for similar issue. Patient has had decreased appetite over the last day and a half and decreased responsiveness. Information is obtained per family , patient is poor historian - Related Data Home Medications Medication Instructions Recorded Confirmed Acetaminophen [Tylenol Extra 500 mg PO DAILY PRN 07/21/17 08/14/17 Strength] Anastrozole [Arimidex] 1 mg PO DAILY 07/21/17 08/14/17 Budesonide [Pulmicort] 0.5 mg INHALATION RT-BID 07/21/17 08/14/17 Cholecalciferol [Vitamin D3] 1,000 unit PO DAILY 07/21/17 08/14/17 Hydrocodone/Acetaminophen [[place] 1 tab PO DAILY 07/21/17 08/14/17 7.5-325] Ipratropium-Albuterol Nebulize 3 ml INHALATION RT-TID 07/21/17 08/14/17 [Duoneb 0.5 mg-3 mg/3 ml Soln] Omeprazole [PriLOSEC] 20 mg PO DAILY 07/21/17 08/14/17 Simvastatin [Zocor] 20 mg PO SUTH 07/21/17 08/14/17 Zolpidem [Ambien] 10 mg PO HS 07/21/17 08/14/17 predniSONE 1 mg PO Q48H 07/21/17 08/14/17 Metoprolol Tartrate [Lopressor] 25 mg PO DAILY 08/14/17 08/14/17 Previous Rx's Medication Instructions Recorded Insulin Detemir [Levemir Flextouch] 35 unit SQ DAILY #0 07/24/17 Insulin Lispro [humaLOG Kwikpen] 9 unit SQ TID-W/MEALS #0 07/24/17 Losartan [Cozaar] 100 mg PO DAILY #30 tab 07/24/17 Allergies Allergy/AdvReac Type Severity Reaction Status Date / Time cortisone Allergy Rash/Hives Verified 08/14/17 11:32 aspirin AdvReac Unknown Verified 08/14/17 11:32 Review of Systems ROS Statement: Those systems with pertinent positive or pertinent negative responses have been documented in the HPI. ROS Other: All systems not noted in ROS Statement are negative. Past Medical History Past Medical History: Cancer, Diabetes Mellitus, Hypertension, Rheumatoid Arthritis (RA) Additional Past Medical History / Comment(s): breast cancer History of Any Multi-Drug Resistant Organisms: None Reported Past Surgical History: Joint Replacement Additional Past Surgical History / Comment(s): left shoulder replacement, right breast lumpectomy and lymph node removal with repeat surgery to obtain full margins, left total knee arthroplasty 2, bilateral cataract removal and intraocular lens implants, right eye had an injection recently Past Anesthesia/Blood Transfusion Reactions: No Reported Reaction Past Psychological History: No Psychological Hx Reported Smoking Status: Former smoker Past Alcohol Use History: None Reported Past Drug Use History: None Reported - Past Family History Mother Family Medical History: Dementia Additional Family Medical History / Comment(s): Mother at age 90 with history of diabetes and hypertension. Father Additional Family Medical History / Comment(s): Father at age 90 possibly just from old age. Brother(s) Additional Family Medical History / Comment(s): Patient has 3 brothers and one sister with strong history of diabetes and hypertension. She has one brother with history of kidney stones. Daughter(s) Additional Family Medical History / Comment(s): Patient has one daughter with history of hypothyroidism, hypertension and hyperlipidemia. Son(s) Additional Family Medical History / Comment(s): Patient has 2 sons and one has history of osteoarthritis and one of bipolar. General Exam Limitations: altered mental status General appearance: alert, in no apparent distress Head exam: Present: atraumatic, normocephalic, normal inspection Eye exam: Present: normal appearance, PERRL, EOMI. Absent: scleral icterus, conjunctival injection, periorbital swelling ENT exam: Present: normal exam, mucous membranes moist Neck exam: Present: normal inspection. Absent: tenderness, meningismus, lymphadenopathy Respiratory exam: Present: normal lung sounds bilaterally. Absent: respiratory distress, wheezes, rales, rhonchi, stridor Cardiovascular Exam: Present: regular rate, normal rhythm, normal heart sounds. Absent: systolic murmur, diastolic murmur, rubs, gallop, clicks GI/Abdominal exam: Present: soft, normal bowel sounds. Absent: distended, tenderness, guarding, rebound, rigid Extremities exam: Present: normal inspection, full ROM, normal capillary refill. Absent: tenderness, pedal edema, joint swelling, calf tenderness Back exam: Present: normal inspection Neurological exam: Present: alert, oriented X3, CN II-XII intact Psychiatric exam: Present: normal affect, normal mood Skin exam: Present: warm, dry, intact, normal color. Absent: rash Course Vital Signs 08/14/17 08/14/17 08/14/17 10:31 11:35 11:45 Temperature 98.2 F Pulse Rate 62 56 L 60 Respiratory 18 18 18 Rate Blood Pressure 235/105 243/104 116/56 O2 Sat by Pulse 95 94 L 95 Oximetry 08/14/17 08/14/17 12:29 13:11 Temperature Pulse Rate 59 L 59 L Respiratory 18 Rate Blood Pressure 234/105 157/105 O2 Sat by Pulse 95 Oximetry - Reevaluation(s) Reevaluation #1: 08/14/17 13:26 Patient's blood pressure was severely elevated is now much improved Reevaluation #2: 08/14/17 13:27 No real improvement in mental state EKG Findings - EKG Comments: EKG Findings:: EKG shows sinus bradycardia rate of 51, MD 174, QRS 76, QTC 409 Medical Decision Making - Medical Decision Making Atriocranial ER for evaluation. Patient coming in for altered mental state. Patient has severely low magnesium altered mental status and history of similar issue. Patient will be admitted for continued evaluation and treatment - Lab Data Result diagrams: 08/14/17 11:00 08/14/17 11:00 Lab Results 08/14/17 08/14/17 08/14/17 Range/Units 11:00 11:00 11:00 WBC 8.0 (3.8-10.6) k/uL RBC 4.53 (3.80-5.40) m/uL Hgb 12.9 (11.4-16.0) gm/dL Hct 41.4 (34.0-46.0) % MCV 91.4 (80.0-100.0) fL MCH 28.5 (25.0-35.0) pg MCHC 31.2 (31.0-37.0) g/dL RDW 13.8 (11.5-15.5) % Plt Count 238 (150-450) k/uL Neutrophils % 70 % Lymphocytes % 21 % Monocytes % 6 % Eosinophils % 1 % Basophils % 0 % Neutrophils # 5.6 (1.3-7.7) k/uL Lymphocytes # 1.7 (1.0-4.8) k/uL Monocytes # 0.5 (0-1.0) k/uL Eosinophils # 0.1 (0-0.7) k/uL Basophils # 0.0 (0-0.2) k/uL Hypochromasia Moderate PT (9.0-12.0) sec INR (<1.2) APTT (22.0-30.0) sec Sodium (137-145) mmol/L Potassium (3.5-5.1) mmol/L Chloride (98-107) mmol/L Carbon Dioxide (22-30) mmol/L Anion Gap mmol/L BUN (7-17) mg/dL Creatinine (0.52-1.04) mg/dL Est GFR (MDRD) Af Amer (>60 ml/min/1.73 sqM) Est GFR (MDRD) Non-Af (>60 ml/min/1.73 sqM) Glucose (74-99) mg/dL Plasma Lactic Acid Deny 0.9 (0.7-2.0) mmol/L Calcium (8.4-10.2) mg/dL Phosphorus (2.5-4.5) mg/dL Magnesium (1.6-2.3) mg/dL Total Bilirubin (0.2-1.3) mg/dL AST (14-36) U/L ALT (9-52) U/L Alkaline Phosphatase (38-126) U/L Ammonia 19 (<30) umol/L Total Creatine Kinase 75 (30-135) U/L CK-MB (CK-2) 1.6 (0.0-2.4) ng/mL CK-MB (CK-2) Rel Index 2.1 Troponin I 0.014 (0.000-0.034) ng/mL Total Protein (6.3-8.2) g/dL Albumin (3.5-5.0) g/dL TSH (0.465-4.680) mIU/L Urine Color Urine Appearance (Clear) Urine pH (5.0-8.0) Ur Specific [place] (1.001-1.035) Urine Protein (Negative) Urine Glucose (UA) (Negative) Urine Ketones (Negative) Urine Blood (Negative) Urine Nitrite (Negative) Urine Bilirubin (Negative) Urine Urobilinogen (<2.0) mg/dL Ur Leukocyte Esterase (Negative) Urine RBC (0-5) /hpf Urine WBC (0-5) /hpf Urine Bacteria (None) /hpf Urine Mucus (None) /hpf 08/14/17 08/14/17 08/14/17 Range/Units 11:00 11:00 12:50 WBC (3.8-10.6) k/uL RBC (3.80-5.40) m/uL Hgb (11.4-16.0) gm/dL Hct (34.0-46.0) % MCV (80.0-100.0) fL MCH (25.0-35.0) pg MCHC (31.0-37.0) g/dL RDW (11.5-15.5) % Plt Count (150-450) k/uL Neutrophils % % Lymphocytes % % Monocytes % % Eosinophils % % Basophils % % Neutrophils # (1.3-7.7) k/uL Lymphocytes # (1.0-4.8) k/uL Monocytes # (0-1.0) k/uL Eosinophils # (0-0.7) k/uL Basophils # (0-0.2) k/uL Hypochromasia PT 11.0 (9.0-12.0) sec INR 1.1 (<1.2) APTT 24.7 (22.0-30.0) sec Sodium 139 (137-145) mmol/L Potassium 3.9 (3.5-5.1) mmol/L Chloride 103 (98-107) mmol/L Carbon Dioxide 25 (22-30) mmol/L Anion Gap 11 mmol/L BUN 23 H (7-17) mg/dL Creatinine 1.25 H (0.52-1.04) mg/dL Est GFR (MDRD) Af Amer 50 (>60 ml/min/1.73 sqM) Est GFR (MDRD) Non-Af 41 (>60 ml/min/1.73 sqM) Glucose 138 H (74-99) mg/dL Plasma Lactic Acid Deny (0.7-2.0) mmol/L Calcium 9.9 (8.4-10.2) mg/dL Phosphorus 3.2 (2.5-4.5) mg/dL Magnesium 1.0 L* (1.6-2.3) mg/dL Total Bilirubin 0.5 (0.2-1.3) mg/dL AST 18 (14-36) U/L ALT 29 (9-52) U/L Alkaline Phosphatase 64 (38-126) U/L Ammonia (<30) umol/L Total Creatine Kinase (30-135) U/L CK-MB (CK-2) (0.0-2.4) ng/mL CK-MB (CK-2) Rel Index Troponin I (0.000-0.034) ng/mL Total Protein 6.8 (6.3-8.2) g/dL Albumin 3.9 (3.5-5.0) g/dL TSH 1.760 (0.465-4.680) mIU/L Urine Color Yellow Urine Appearance Clear (Clear) Urine pH 6.5 (5.0-8.0) Ur Specific [place] 1.018 (1.001-1.035) Urine Protein 3+ H (Negative) Urine Glucose (UA) Negative (Negative) Urine Ketones Negative (Negative) Urine Blood Trace H (Negative) Urine Nitrite Negative (Negative) Urine Bilirubin Negative (Negative) Urine Urobilinogen <2.0 (<2.0) mg/dL Ur Leukocyte Esterase Negative (Negative) Urine RBC <1 (0-5) /hpf Urine WBC 8 H (0-5) /hpf Urine Bacteria Rare H (None) /hpf Urine Mucus Rare H (None) /hpf - Radiology Data Radiology results: report reviewed (CT brain is negative, chest x-ray negative) , image reviewed Disposition Clinical Impression: Delirium due to general medical condition, UTI (urinary tract infection), ARF ( acute renal failure), Hypomagnesemia, Altered mental status Disposition: ADMITTED IP TO THIS [facility] Condition: Fair Instructions: Altered Mental Status (ED) Referrals: Jorge Quevedo MD [Primary Care Provider] - 1-2 days
[2017-08-14 11:34] LABS: Basophils % (A) 0 %; CH 28.3; CHCM 31.1; Eosinophils # (A) 0.1 k/uL (0-0.7); Eosinophils % (A) 1 %; HCT 41.4 % (34.0-46.0); HDW 2.88; HGB 12.9 gm/dL (11.4-16.0); Hypochromasia Moderate; Luc # (Auto) 0.16; Luc % (Auto) 2; Lymphocytes # (A) 1.7 k/uL (1.0-4.8); Lymphocytes % (A) 21 %; MCH 28.5 pg (25.0-35.0); MCHC 31.2 g/dL (31.0-37.0); MCV 91.4 fL (80.0-100.0); Mean Platelet Volume 6.6; Monocytes # (A) 0.5 k/uL (0-1.0); Monocytes % (A) 6 %; Neutrophils # (A) 5.6 k/uL (1.3-7.7); Neutrophils % (A) 70 %; RBC 4.53 m/uL (3.80-5.40); RDW 13.8 % (11.5-15.5); WBC (Perox) 8.15
[2017-08-14 11:47] LABS: INR 1.1 (<1.2); Partial Thromboplastin Time 24.7 sec (22.0-30.0)
[2017-08-14 11:48] LABS: Calcium 9.9 mg/dL (8.4-10.2); Phosphorus 3.2 mg/dL (2.5-4.5); Potassium 3.9 mmol/L (3.5-5.1); Total Bilirubin 0.5 mg/dL (0.2-1.3); Total Protein 6.8 g/dL (6.3-8.2)
[2017-08-14 12:08] LABS: Creatine Kinase MB 1.6 ng/mL (0.0-2.4); Troponin I 0.014 ng/mL (0.000-0.034)
[2017-08-14] MEDS ORDERED: MAGNESIUM OXIDE 400 MG TAB PO STA (12:19)
--- NOTE | 2017-08-14 12:24 | CT ---
EXAMINATION TYPE: CT brain wo con DATE OF EXAM: 08/14/2017 COMPARISON: 07/21/2017 HISTORY: 82-year-old female Confusion, CVA TECHNIQUE: Examination was done in axial plane without intravenous contrast. Coronal and sagittal r econstructions performed. CT DLP: 1171 mGycm Automated exposure control for dose reduction was used. FINDINGS: Prominent motion and calvarial artifacts limit assessment. Within this limitation, no evidence for ac cresencio intracranial hemorrhage, acute ischemic change, mass, mass effect, midline shift, or extra-axial fluid collection. No hydrocephalus. No effacement of cerebral sulci or basal subarachnoid cisterns. G ray-white matter differentiation is obtained though there are moderate patchy and confluent white mat ter hypodensities in both cerebral hemispheres. Rightward nasal septal deviation. Mastoid air cells are well pneumatized. Mild mucosal thickening rig ht ethmoid air cells. Orbits and globes appear intact. IMPRESSION: Motion degraded exam. Within this limitation, no acute intracranial abnormality seen. Similar moderat e changes of chronic small vessel ischemic disease.
--- NOTE | 2017-08-14 12:28 | XR ---
EXAMINATION TYPE: XR chest 2V DATE OF EXAM: 08/14/2017 COMPARISON: 07/21/2017 HISTORY: 82-year-old female with weakness TECHNIQUE: Frontal and lateral views FINDINGS: Somewhat low lung volumes. Heart is upper limits of normal in size likely accentuated by the low lung volumes. Mild diffuse interstitial prominence is unchanged. Surgical clips of the right breast. Reve rse left total shoulder arthroplasty. No jenna consolidation or pleural effusion. IMPRESSION: Chronic changes, possible chronic bronchitis/asthma. No acute process seen.
[2017-08-14 13:07] LABS: Appearance,Urine Clear (Clear); Bacteria,Urine Rare /hpf; Bilirubin,Urine Negative (Negative); Glucose,Urine (UA) Negative (Negative); Ketones,Urine Negative (Negative); Leukocyte Esterase,Urine Negative (Negative); Mucus,Urine Rare /hpf; Nitrite,Urine Negative (Negative); PH, Urine 6.5 (5.0-8.0); Particle Count 3455; Protein,Urine 3+ (Negative); RBC,Urine <1 /hpf (0-5); Specific Gravity,Urine 1.018 (1.001-1.035); UA Billing (MACRO vs. MICRO) MICRO; Urobilinogen,Urine <2.0 mg/dL (<2.0); WBC,Urine 8 /hpf (0-5)
[2017-08-14] MEDS ORDERED: LORazepam 2 MG/ML INJ IV STA (13:08)
[2017-08-14] MEDS: MAGNESIUM SULFATE-D5W PMX 1 GM in DEXTROSE/WATER 1 100ML.BAG IVPB SCH ×4 (13:16→18:18)
[2017-08-14] MEDS ORDERED: ACETAMINOPHEN IV (For NPO) 1,000 MG in EMPTY BAG 1 BAG IVPB STA (14:31)
[2017-08-14] MEDS ORDERED: MORPHINE SULFATE 4 MG/ML SYRINGE IVP STA (14:33)
[2017-08-14 17:26] LABS: Glucose,Whole Blood 188 mg/dL (75-99)
[2017-08-14] MEDS: INSULIN LISPRO (humaLOG) 300 UNIT/3 ML VIAL SQ SCH ×2 (17:37→21:20)
[2017-08-14] MEDS ORDERED: ACETAMINOPHEN TAB 500 MG TAB PO PRN (18:22)
[2017-08-14] MEDS: predniSONE 1 MG TAB PO SCH (19:23)
[2017-08-14 20:24] LABS: Hemoglobin A1C 9.3 % (4.2-6.1)
--- NOTE | 2017-08-14 20:35 | P.HPIM ---
History of Present Illness H&P Date: 08/14/17 Chief Complaint: Mental status changes This is an 82-year-old female patient of Dr. Jorge Quevedo with a past medical history for diabetes mellitus type 2, hypertension, rheumatoid arthritis, breast cancer status post lumpectomy on the right with lymph node dissection which were negative. She had to have repeat surgery to complete margins. She has refused radiation treatment. She was last admitted from our facility and discharge 07/24/2017 secondary to metabolic encephalopathy with urinary tract infection, urgent hypertension and acute kidney injury, possible early sepsis requiring IV fluid resuscitation and was discharged to home for and currently stays [facility] in [facility] with the With nursing supervision for medications. Urine culture at that time was negative for any growth, urine WBC at that time was only 1 This time patient presented with mentation changes, headache, was agitated when seen in emergency room,, patient is a very poor historian, per family patient is not acting appropriately, has decreased appetite and decreased responsiveness , per history patient has a headache, blood pressure was 230 systolic upon arrival to emergency room, and was medicated with labetalol and morphine, upon my evaluation in the floor, patient is more drowsy awakens to voice however cannot provide much information short-term memory loss is identified patient denies any pain chest pain or abdominal pain, no hematuria no diarrhea no dysuria, patient was started on Rocephin for appreciably urinary tract infection with a urine WBC of 8, CBC WBC of 8.0 creatinine elevated at 1.25 from a previous of 1.17 during the last admission 3 weeks ago Review of Systems ROS unobtainable: due to mental status Constitutional: Reports as per HPI Ears, nose, mouth and throat: Reports as per HPI Cardiovascular: Reports as per HPI Respiratory: Reports as per HPI Gastrointestinal: Reports as per HPI Genitourinary: Reports as per HPI Menstruation: Reports as per HPI Musculoskeletal: Reports as per HPI Integumentary: Reports as per HPI Neurological: Reports as per HPI Psychiatric: Reports as per HPI Endocrine: Reports as per HPI Hematologic/Lymphatic: Reports as per HPI Allergic/Immunologic: Reports as per HPI Past Medical History Past Medical History: Cancer, Diabetes Mellitus, GERD/Reflux, Hyperlipidemia, Hypertension, Rheumatoid Arthritis (RA) Additional Past Medical History / Comment(s): LTbreast cancer, mac degeneration , uti,glenn(07-21-17), "pt's stated she uses and inhalor but i don't know why" History of Any Multi-Drug Resistant Organisms: None Reported Past Surgical History: Joint Replacement Additional Past Surgical History / Comment(s): left shoulder replacement, right breast lumpectomy and lymph node removal with repeat surgery to obtain full margins, left total knee arthroplasty 2, bilateral cataract removal and intraocular lens implants, right eye had an injection recently Past Anesthesia/Blood Transfusion Reactions: No Reported Reaction Smoking Status: Former smoker - Past Family History Mother Family Medical History: Dementia Additional Family Medical History / Comment(s): Mother at age 90 with history of diabetes and hypertension. Father Family Medical History: Cancer Additional Family Medical History / Comment(s): Father at age 90 colon cancer Brother(s) Additional Family Medical History / Comment(s): Patient has 3 brothers and one sister with strong history of diabetes and hypertension. She has one brother with history of kidney stones. Daughter(s) Additional Family Medical History / Comment(s): Patient has one daughter with history of hypothyroidism, hypertension and hyperlipidemia. Son(s) Additional Family Medical History / Comment(s): Patient has 2 sons and one has history of osteoarthritis and one of bipolar. Medications and Allergies Home Medications Medication Instructions Recorded Confirmed Type Acetaminophen [Tylenol Extra 500 mg PO DAILY PRN 07/21/17 08/14/17 History Strength] Anastrozole [Arimidex] 1 mg PO DAILY 07/21/17 08/14/17 History Budesonide [Pulmicort] 0.5 mg INHALATION RT-BID 07/21/17 08/14/17 History Cholecalciferol [Vitamin D3] 1,000 unit PO DAILY 07/21/17 08/14/17 History Hydrocodone/Acetaminophen [[place] 1 tab PO DAILY 07/21/17 08/14/17 History 7.5-325] Ipratropium-Albuterol Nebulize 3 ml INHALATION RT-TID 07/21/17 08/14/17 History [Duoneb 0.5 mg-3 mg/3 ml Soln] Omeprazole [PriLOSEC] 20 mg PO DAILY 07/21/17 08/14/17 History Simvastatin [Zocor] 20 mg PO SUTH 07/21/17 08/14/17 History Zolpidem [Ambien] 10 mg PO HS 07/21/17 08/14/17 History predniSONE 1 mg PO Q48H 07/21/17 08/14/17 History Insulin Detemir [Levemir Flextouch] 35 unit SQ DAILY #0 07/24/17 08/14/17 Rx Insulin Lispro [humaLOG Kwikpen] 9 unit SQ TID-W/MEALS #0 07/24/17 08/14/17 Rx Losartan [Cozaar] 100 mg PO DAILY #30 tab 07/24/17 08/14/17 Rx Metoprolol Tartrate [Lopressor] 25 mg PO DAILY 08/14/17 08/14/17 History Allergies Allergy/AdvReac Type Severity Reaction Status Date / Time cortisone Allergy Rash/Hives Verified 08/14/17 11:32 aspirin AdvReac Unknown Verified 08/14/17 11:32 Physical Exam Vitals: Vital Signs Temp Pulse Pulse Resp BP BP Pulse Ox 08/14/17 16:45 18 08/14/17 16:41 97.9 F 63 18 179/83 94 L 08/14/17 15:57 97.5 F L 63 20 152/70 99 08/14/17 15:17 62 20 173/68 95 08/14/17 14:31 64 18 194/77 92 L 08/14/17 13:33 69 169/81 08/14/17 13:11 59 L 157/105 08/14/17 12:29 59 L 18 234/105 95 08/14/17 11:45 60 18 116/56 95 08/14/17 11:35 56 L 18 243/104 94 L 08/14/17 10:31 98.2 F 62 18 235/105 95 Intake and Output 08/14/17 08/14/17 08/14/17 06:59 14:59 22:59 Intake Total 200 Output Total 250 Balance -50 Intake: Intake, IV Titration 200 Amount Magnesium Sulfate-D5w Pmx 200 1 gm In Dextrose/Water 1 100ml.bag @ 100 mls/hr IVPB Q1H [facility] Rx#: [id number] Output: Urine 250 Other: Weight 79.832 kg Patient Weight 08/15/17 06:59 Weight 79.832 kg - Constitutional General appearance: cooperative, no acute distress - EENT Eyes: anicteric sclerae, EOMI, PERRLA, normal appearance ENT: hard of hearing, normal oropharynx - Neck Neck: no lymphadenopathy, normal ROM, no other, no rigidity, no stridor, no thyromegaly - Respiratory Respiratory: bilateral: CTA, negative: diminished, dullness, rales, rhonchi - Cardiovascular Rhythm: regular Heart sounds: normal: S1, S2 - Gastrointestinal General gastrointestinal: normal bowel sounds, soft - Integumentary Integumentary: decreased turgor, normal - Musculoskeletal Musculoskeletal: strength equal bilaterally - Psychiatric Psychiatric: appropriate affect Results CBC & Chem 7: 08/14/17 11:00 08/14/17 11:00 Labs: Abnormal Lab Results - Last 24 Hours (Table) 08/14/17 08/14/17 08/14/17 Range/Units 11:00 12:50 17:14 BUN 23 H (7-17) mg/dL Creatinine 1.25 H (0.52-1.04) mg/dL Glucose 138 H (74-99) mg/dL POC Glucose (mg/dL) 188 H (75-99) mg/dL Magnesium 1.0 L* (1.6-2.3) mg/dL Urine Protein 3+ H (Negative) Urine Blood Trace H (Negative) Urine WBC 8 H (0-5) /hpf Urine Bacteria Rare H (None) /hpf Urine Mucus Rare H (None) /hpf Laboratory Results WBC 8.0 k/uL (3.8-10.6) 08/14/17 11:00 RBC 4.53 m/uL (3.80-5.40) 08/14/17 11:00 Hgb 12.9 gm/dL (11.4-16.0) 08/14/17 11:00 Hct 41.4 % (34.0-46.0) 08/14/17 11:00 MCV 91.4 fL (80.0-100.0) 08/14/17 11:00 MCH 28.5 pg (25.0-35.0) 08/14/17 11:00 MCHC 31.2 g/dL (31.0-37.0) 08/14/17 11:00 RDW 13.8 % (11.5-15.5) 08/14/17 11:00 Plt Count 238 k/uL (150-450) 08/14/17 11:00 Neutrophils % 70 % 08/14/17 11:00 Lymphocytes % 21 % 08/14/17 11:00 Monocytes % 6 % 08/14/17 11:00 Eosinophils % 1 % 08/14/17 11:00 Basophils % 0 % 08/14/17 11:00 Neutrophils # 5.6 k/uL (1.3-7.7) 08/14/17 11:00 Lymphocytes # 1.7 k/uL (1.0-4.8) 08/14/17 11:00 Monocytes # 0.5 k/uL (0-1.0) 08/14/17 11:00 Eosinophils # 0.1 k/uL (0-0.7) 08/14/17 11:00 Basophils # 0.0 k/uL (0-0.2) 08/14/17 11:00 Hypochromasia Moderate 08/14/17 11:00 PT 11.0 sec (9.0-12.0) 08/14/17 11:00 INR 1.1 (<1.2) 08/14/17 11:00 APTT 24.7 sec (22.0-30.0) 08/14/17 11:00 Sodium 139 mmol/L (137-145) 08/14/17 11:00 Potassium 3.9 mmol/L (3.5-5.1) 08/14/17 11:00 Chloride 103 mmol/L (98-107) 08/14/17 11:00 Carbon Dioxide 25 mmol/L (22-30) 08/14/17 11:00 Anion Gap 11 mmol/L 08/14/17 11:00 BUN 23 mg/dL (7-17) H 08/14/17 11:00 Creatinine 1.25 mg/dL (0.52-1.04) H 08/14/17 11:00 Est GFR (MDRD) Af Amer 50 (>60 ml/min/1.73 sqM) 08/14/17 11:00 Est GFR (MDRD) Non-Af 41 (>60 ml/min/1.73 sqM) 08/14/17 11:00 Glucose 138 mg/dL (74-99) H 08/14/17 11:00 POC Glucose (mg/dL) 188 mg/dL (75-99) H 08/14/17 17:14 POC Glu [employer] Programmer ID Omaira Quintero 08/14/17 17:14 Plasma Lactic Acid Deny 0.9 mmol/L (0.7-2.0) 08/14/17 11:00 Calcium 9.9 mg/dL (8.4-10.2) 08/14/17 11:00 Phosphorus 3.2 mg/dL (2.5-4.5) 08/14/17 11:00 Magnesium 1.0 mg/dL (1.6-2.3) L* 08/14/17 11:00 Total Bilirubin 0.5 mg/dL (0.2-1.3) 08/14/17 11:00 AST 18 U/L (14-36) 08/14/17 11:00 ALT 29 U/L (9-52) 08/14/17 11:00 Alkaline Phosphatase 64 U/L (38-126) 08/14/17 11:00 Ammonia 19 umol/L (<30) 08/14/17 11:00 Total Creatine Kinase 75 U/L (30-135) 08/14/17 11:00 CK-MB (CK-2) 1.6 ng/mL (0.0-2.4) 08/14/17 11:00 CK-MB (CK-2) Rel Index 2.1 08/14/17 11:00 Troponin I 0.014 ng/mL (0.000-0.034) 08/14/17 11:00 Total Protein 6.8 g/dL (6.3-8.2) 08/14/17 11:00 Albumin 3.9 g/dL (3.5-5.0) 08/14/17 11:00 TSH 1.760 mIU/L (0.465-4.680) 08/14/17 11:00 Urine Color Yellow 08/14/17 12:50 Urine Appearance Clear (Clear) 08/14/17 12:50 Urine pH 6.5 (5.0-8.0) 08/14/17 12:50 Ur Specific [place] 1.018 (1.001-1.035) 08/14/17 12:50 Urine Protein 3+ (Negative) H 08/14/17 12:50 Urine Glucose (UA) Negative (Negative) 08/14/17 12:50 Urine Ketones Negative (Negative) 08/14/17 12:50 Urine Blood Trace (Negative) H 08/14/17 12:50 Urine Nitrite Negative (Negative) 08/14/17 12:50 Urine Bilirubin Negative (Negative) 08/14/17 12:50 Urine Urobilinogen <2.0 mg/dL (<2.0) 08/14/17 12:50 Ur Leukocyte Esterase Negative (Negative) 08/14/17 12:50 Urine RBC <1 /hpf (0-5) 08/14/17 12:50 Urine WBC 8 /hpf (0-5) H 08/14/17 12:50 Urine Bacteria Rare /hpf (None) H 08/14/17 12:50 Urine Mucus Rare /hpf (None) H 08/14/17 12:50 Thrombosis Risk Factor Assmnt - DVT/VTE Prophylaxis DVT/VTE Prophylaxis: Pharmacologic Prophylaxis ordered, Mechanical Prophylaxis ordered - Choose All That Apply Any of the Below Risk Factors Present?: Yes Each Factor Represents 1 point: Obesity (BMI >25) Each Risk Factor Represents 3 Points: Age 75 years or older Other congenital or acquired thrombophilia - If yes, enter type in comment: No Thrombosis Risk Factor Assessment Total Risk Factor Score: 4 Thrombosis Risk Factor Assessment Level: Moderate Risk Assessment and Plan Plan: 1. Metabolic encephalopathy secondary to hypertensive emergency requiring IV labetalol and acute kidney injury. , Hydralazine 10 mg every 4 when necessary for systolic over 160,. Change the valsartan to valsartan 160 mg daily monitor for any neurologic decline including cardiovascular symptoms, and pulmonary edema 2. Urinary tract infection post IV fluid resuscitation. Ceftriaxone will be continued. Urine culture is in progress. Monitor for progressive decline including sepsis 3. Urgent hypertension in patient with history of hypertension. Patient was given labetalol in the emergency center. Continue atenolol 25 mg daily, changed to losartan to valsartan 160 mg secondary to uncontrolled hypertension, this can be titrated up to twice a day, Hydrochlorothiazide discontinued. 4. Acute kidney iinjury underlying ckd 3 with proteinuria most likely secondary to diabetes mellitus. Hydrochlorothiazide discontinued. Continue gentle rehydration. Recheck lab work in the morning, avoid nephrotoxins. 5. Diabetes mellitus type 2, insulin requiring. Levemir will be changed to12 units daily continue Humalog at 9 units with meals and per scale. 6. Hypomagnesemia, placements in progress 7. Breast cancer. Continue Arimidex 1 mg daily. 8. Hyperlipidemia. Continue Lipitor 10 mg twice weekly. 9. Mild persistent asthma. Continue DuoNeb treatments and Pulmicort. 10. Gastroesophageal reflux disease. Continue Prilosec 20 mg daily. 11. Rheumatoid arthritis. Continue prednisone 1 mg every 48 hours. 12. DVT prophylaxis. Continue Lovenox 30 mg daily, dose adjusted for renal function 13. Debility, unknown community assistive devices, patient has a walker however this is not confirmed, PT OT will be seeing the patient,. Patient will be admitted to the hospital for a minimum of 2 night stay. Discharge plan: [facility] likely return [facility] with homecare. PT and OT.
[2017-08-14] MEDS ORDERED: hydrALAZINE HCL 20 MG/ML 1 ML VIAL IVP PRN (20:36)
[2017-08-14 20:41] LABS: Glucose,Whole Blood 199 mg/dL (75-99)
[2017-08-14] MEDS: BUDESONIDE 0.5 MG/2 ML NEBU INHALATION SCH (20:46)
[2017-08-14] MEDS: IPRATROPIUM-ALBUTEROL 3 ML NEB INHALATION SCH (20:46)
[2017-08-14] MEDS: MAGNESIUM OXIDE 400 MG TAB PO SCH (21:20)
[2017-08-15] MEDS: IPRATROPIUM-ALBUTEROL 3 ML NEB INHALATION SCH ×3 (07:42→19:16)
[2017-08-15] MEDS: BUDESONIDE 0.5 MG/2 ML NEBU INHALATION SCH ×2 (07:42→19:16)
[2017-08-15 07:56] LABS: Glucose,Whole Blood 198 mg/dL (75-99)
[2017-08-15] MEDS: METOPROLOL TARTRATE 25 MG TAB PO SCH (08:08)
[2017-08-15] MEDS: VALSARTAN 160 MG TAB PO SCH (08:08)
[2017-08-15] MEDS: INSULIN DETEMIR 100 UNIT/ML 10 ML VIAL SQ SCH (08:08)
[2017-08-15] MEDS: INSULIN LISPRO (humaLOG) 300 UNIT/3 ML VIAL SQ SCH ×4 (08:08→21:43)
[2017-08-15] MEDS: PANTOPRAZOLE 40 MG TABLET PO SCH (08:09)
[2017-08-15] MEDS: MAGNESIUM OXIDE 400 MG TAB PO SCH ×2 (08:09→20:01)
[2017-08-15] MEDS: ANASTROZOLE 1 MG TAB PO SCH (08:09)
[2017-08-15] MEDS ORDERED: ENOXAPARIN 40 MG/0.4 ML SYRINGE SQ SCH (09:00)
[2017-08-15] MEDS ORDERED: LOSARTAN 50 MG TAB PO SCH (09:00)
[2017-08-15 09:45] LABS: Basophils % (A) 0 %; CH 27.7; CHCM 29.1; Eosinophils # (A) 0.1 k/uL (0-0.7); Eosinophils % (A) 1 %; HCT 40.7 % (34.0-46.0); HDW 2.72; HGB 12.1 gm/dL (11.4-16.0); Hypochromasia Marked; Luc # (Auto) 0.14; Luc % (Auto) 2; Lymphocytes # (A) 1.5 k/uL (1.0-4.8); Lymphocytes % (A) 19 %; MCH 28.4 pg (25.0-35.0); MCHC 29.8 g/dL (31.0-37.0); MCV 95.2 fL (80.0-100.0); Monocytes # (A) 0.5 k/uL (0-1.0); Monocytes % (A) 7 %; Neutrophils # (A) 5.3 k/uL (1.3-7.7); Neutrophils % (A) 71 %; RBC 4.28 m/uL (3.80-5.40); RDW 13.7 % (11.5-15.5); WBC 7.5 k/uL (3.8-10.6); WBC (Perox) 7.81
[2017-08-15 10:12] LABS: Calcium 9.4 mg/dL (8.4-10.2); Magnesium 2.1 mg/dL (1.6-2.3); Potassium 4.2 mmol/L (3.5-5.1); Total Bilirubin 0.4 mg/dL (0.2-1.3); Total Protein 6.4 g/dL (6.3-8.2)
[2017-08-15 11:46] LABS: Glucose,Whole Blood 212 mg/dL (75-99)
[2017-08-15] MEDS: CHOLECALCIFEROL 1,000 UNIT TAB PO SCH (11:55)
[2017-08-15 14:55] VITALS: BMI 33.2
--- NOTE | 2017-08-15 15:10 | P.PN ---
Subjective This is an 82-year-old female patient of Dr. Jorge Quevedo with a past medical history for diabetes mellitus type 2, hypertension, rheumatoid arthritis, breast cancer status post lumpectomy on the right with lymph node dissection which were negative. She had to have repeat surgery to complete margins. She has refused radiation treatment. She was last admitted from our facility and discharge 07/24/2017 secondary to metabolic encephalopathy with urinary tract infection, urgent hypertension and acute kidney injury, possible early sepsis requiring IV fluid resuscitation and was discharged to home for and currently stays [facility] in [facility] with the With nursing supervision for medications. Urine culture at that time was negative for any growth, urine WBC at that time was only 1 This time patient presented with mentation changes, headache, was agitated when seen in emergency room,, patient is a very poor historian, per family patient is not acting appropriately, has decreased appetite and decreased responsiveness , per history patient has a headache, blood pressure was 230 systolic upon arrival to emergency room, and was medicated with labetalol and morphine, upon my evaluation in the floor, patient is more drowsy awakens to voice however cannot provide much information short-term memory loss is identified patient denies any pain chest pain or abdominal pain, no hematuria no diarrhea no dysuria, patient was started on Rocephin for appreciably urinary tract infection with a urine WBC of 8, CBC WBC of 8.0 creatinine elevated at 1.25 from a previous of 1.17 during the last admission 3 weeks ago 08/15: Lung discussion occurred with the patient's and daughter regarding plan. Mental status is improved today but patient does have memory loss. Creatinine is 1.26 which is her baseline. Social work consult for ECF placement for tomorrow. Objective - Vital Signs Vital signs: Vital Signs Temp 96.9 F L 08/15/17 07:00 Pulse 56 L 08/15/17 12:46 Resp 18 08/15/17 07:00 BP 136/80 08/15/17 07:00 Pulse Ox 94 L 08/15/17 07:00 Intake & Output 08/14/17 08/15/17 08/15/17 18:59 06:59 18:59 Intake Total 200 Output Total 250 400 Balance -50 -400 Weight 79.832 kg Intake: Intake, IV Titration 200 Amount Magnesium Sulfate-D5w Pmx 200 1 gm In Dextrose/Water 1 100ml.bag @ 100 mls/hr IVPB Q1H [facility] Rx#: [id number] Output: Urine 250 400 Other: Voiding Method Bedpan # Voids 0 1 - Exam General appearance: cooperative, no acute distress - EENT Eyes: anicteric sclerae, EOMI, PERRLA, normal appearance ENT: hard of hearing, normal oropharynx - Neck Neck: no lymphadenopathy, normal ROM, no other, no rigidity, no stridor, no thyromegaly - Respiratory Respiratory: bilateral: CTA, negative: diminished, dullness, rales, rhonchi - Cardiovascular Rhythm: regular Heart sounds: normal: S1, S2 - Gastrointestinal General gastrointestinal: normal bowel sounds, soft - Integumentary Integumentary: decreased turgor, normal - Musculoskeletal Musculoskeletal: strength equal bilaterally - Psychiatric Psychiatric: appropriate affect - Labs CBC & Chem 7: 08/15/17 09:03 08/15/17 09:03 Labs: Abnormal Lab Results - Last 24 Hours (Table) 08/14/17 08/14/17 08/14/17 Range/Units 11:00 12:50 17:14 MCHC (31.0-37.0) g/dL Sodium (137-145) mmol/L BUN (7-17) mg/dL Creatinine (0.52-1.04) mg/dL Glucose (74-99) mg/dL POC Glucose (mg/dL) 188 H (75-99) mg/dL Hemoglobin A1c 9.3 H (4.2-6.1) % Urine Protein 3+ H (Negative) Urine Blood Trace H (Negative) Urine WBC 8 H (0-5) /hpf Urine Bacteria Rare H (None) /hpf Urine Mucus Rare H (None) /hpf 08/14/17 08/15/17 08/15/17 Range/Units 20:40 07:51 09:03 MCHC 29.8 L (31.0-37.0) g/dL Sodium (137-145) mmol/L BUN (7-17) mg/dL Creatinine (0.52-1.04) mg/dL Glucose (74-99) mg/dL POC Glucose (mg/dL) 199 H 198 H (75-99) mg/dL Hemoglobin A1c (4.2-6.1) % Urine Protein (Negative) Urine Blood (Negative) Urine WBC (0-5) /hpf Urine Bacteria (None) /hpf Urine Mucus (None) /hpf 08/15/17 08/15/17 Range/Units 09:03 11:44 MCHC (31.0-37.0) g/dL Sodium 136 L (137-145) mmol/L BUN 19 H (7-17) mg/dL Creatinine 1.26 H (0.52-1.04) mg/dL Glucose 204 H (74-99) mg/dL POC Glucose (mg/dL) 212 H (75-99) mg/dL Hemoglobin A1c (4.2-6.1) % Urine Protein (Negative) Urine Blood (Negative) Urine WBC (0-5) /hpf Urine Bacteria (None) /hpf Urine Mucus (None) /hpf Microbiology - Last 24 Hours (Table) 08/14/17 12:50 Urine Culture - Preliminary Urine,Catheterized Assessment and Plan Plan: 1. Metabolic encephalopathy secondary to hypertensive emergency requiring IV labetalol and acute kidney injury. , Hydralazine 10 mg every 4 when necessary for systolic over 160,. Change the valsartan to valsartan 160 mg daily monitor for any neurologic decline including cardiovascular symptoms, and pulmonary edema 2. Urinary tract infection post IV fluid resuscitation. Ceftriaxone will be continued. Urine culture is in progress. Monitor for progressive decline including sepsis 3. Urgent hypertension in patient with history of hypertension. Patient was given labetalol in the emergency center. Continue atenolol 25 mg daily, changed to losartan to valsartan 160 mg secondary to uncontrolled hypertension, this can be titrated up to twice a day, Hydrochlorothiazide discontinued. 4. Chronic kidney disease stage 3 with proteinuria most likely secondary to diabetes mellitus. Hydrochlorothiazide discontinued. Continue gentle rehydration. Recheck lab work in the morning, avoid nephrotoxins. 5. Diabetes mellitus type 2, insulin requiring. Levemir will be changed to12 units daily continue Humalog at 9 units with meals and per scale. 6. Hypomagnesemia, placements in progress 7. Breast cancer. Continue Arimidex 1 mg daily. 8. Hyperlipidemia. Continue Lipitor 10 mg twice weekly. 9. Mild persistent asthma. Continue DuoNeb treatments and Pulmicort. 10. Gastroesophageal reflux disease. Continue Prilosec 20 mg daily. 11. Rheumatoid arthritis. Continue prednisone 1 mg every 48 hours. 12. DVT prophylaxis. Continue Lovenox 30 mg daily, dose adjusted for renal function 13. Debility, unknown community assistive devices, patient has a walker however this is not confirmed, PT OT will be seeing the patient,. Discharge plan: ECF tomorrow. PT and OT. Impression and plan of care have been directed as dictated by the signing physician. Tati Hutton nurse practitioner acting as scribe for signing physician.
[2017-08-15 17:42] LABS: Glucose,Whole Blood 164 mg/dL (75-99)
[2017-08-15] MEDS: KETOTIFEN 0.025% OPHTH DROPS 5 ML BTL RIGHT EYE SCH (20:01)
[2017-08-15] MEDS ORDERED: HALOPERIDOL LACTATE 5 MG/ML 1 ML VIAL IM STA ×2 (20:28→23:33)
[2017-08-15] MEDS ORDERED: HALOPERIDOL LACTATE 5 MG/ML 1 ML VIAL IM PRN (23:36)
[2017-08-16] MEDS: BUDESONIDE 0.5 MG/2 ML NEBU INHALATION SCH ×2 (07:25→21:01)
[2017-08-16] MEDS: IPRATROPIUM-ALBUTEROL 3 ML NEB INHALATION SCH ×3 (07:25→21:01)
[2017-08-16 07:28] LABS: Glucose,Whole Blood 204 mg/dL (75-99)
[2017-08-16] MEDS: INSULIN LISPRO (humaLOG) 300 UNIT/3 ML VIAL SQ SCH ×4 (08:20→21:19)
[2017-08-16] MEDS: ENOXAPARIN 30 MG/0.3 ML SYRINGE SQ SCH (08:21)
[2017-08-16] MEDS: VALSARTAN 160 MG TAB PO SCH (08:22)
[2017-08-16] MEDS: MAGNESIUM OXIDE 400 MG TAB PO SCH ×2 (08:22→21:18)
[2017-08-16] MEDS: METOPROLOL TARTRATE 25 MG TAB PO SCH (08:22)
[2017-08-16] MEDS: PANTOPRAZOLE 40 MG TABLET PO SCH (08:22)
[2017-08-16] MEDS: ANASTROZOLE 1 MG TAB PO SCH (08:22)
[2017-08-16] MEDS: KETOTIFEN 0.025% OPHTH DROPS 5 ML BTL RIGHT EYE SCH ×2 (08:23→21:19)
[2017-08-16] MEDS: INSULIN DETEMIR 100 UNIT/ML 10 ML VIAL SQ SCH (08:30)
[2017-08-16 09:23] LABS: Basophils % (A) 1 %; CH 28.9; CHCM 31.6; Eosinophils % (A) 1 %; HCT 43.2 % (34.0-46.0); HDW 2.79; HGB 13.4 gm/dL (11.4-16.0); Hypochromasia Slight; Luc # (Auto) 0.13; Luc % (Auto) 2; Lymphocytes # (A) 1.2 k/uL (1.0-4.8); Lymphocytes % (A) 15 %; MCH 28.4 pg (25.0-35.0); MCHC 30.9 g/dL (31.0-37.0); MCV 91.9 fL (80.0-100.0); Mean Platelet Volume 7.4; Monocytes # (A) 0.4 k/uL (0-1.0); Monocytes % (A) 6 %; Neutrophils # (A) 5.7 k/uL (1.3-7.7); Neutrophils % (A) 76 %; RDW 14.7 % (11.5-15.5); WBC 7.5 k/uL (3.8-10.6); WBC (Perox) 7.37
[2017-08-16 09:58] LABS: Calcium 10.4 mg/dL (8.4-10.2); Potassium 4.3 mmol/L (3.5-5.1); Total Bilirubin 0.5 mg/dL (0.2-1.3); Total Protein 7.1 g/dL (6.3-8.2)
[2017-08-16 11:26] LABS: Glucose,Whole Blood 199 mg/dL (75-99)
[2017-08-16] MEDS: CHOLECALCIFEROL 1,000 UNIT TAB PO SCH (12:11)
[2017-08-16] MEDS: predniSONE 1 MG TAB PO SCH (17:27)
[2017-08-16 17:28] LABS: Glucose,Whole Blood 176 mg/dL (75-99)
[2017-08-16] MEDS ORDERED: QUEtiapine 25 MG TAB PO SCH (21:00)
[2017-08-16 21:09] LABS: Glucose,Whole Blood 174 mg/dL (75-99)
[2017-08-17 07:22] LABS: Glucose,Whole Blood 183 mg/dL (75-99)
[2017-08-17] MEDS: MAGNESIUM OXIDE 400 MG TAB PO SCH (08:06)
[2017-08-17] MEDS: VALSARTAN 160 MG TAB PO SCH (08:06)
[2017-08-17] MEDS: METOPROLOL TARTRATE 25 MG TAB PO SCH (08:06)
[2017-08-17] MEDS: PANTOPRAZOLE 40 MG TABLET PO SCH (08:06)
[2017-08-17] MEDS: ANASTROZOLE 1 MG TAB PO SCH (08:06)
[2017-08-17] MEDS: ENOXAPARIN 30 MG/0.3 ML SYRINGE SQ SCH (08:07)
[2017-08-17] MEDS: KETOTIFEN 0.025% OPHTH DROPS 5 ML BTL RIGHT EYE SCH (08:07)
[2017-08-17] MEDS: INSULIN DETEMIR 100 UNIT/ML 10 ML VIAL SQ SCH (08:07)
[2017-08-17] MEDS: INSULIN LISPRO (humaLOG) 300 UNIT/3 ML VIAL SQ SCH ×2 (08:07→12:18)
[2017-08-17] MEDS: CHOLECALCIFEROL 1,000 UNIT TAB PO SCH (08:07)
[2017-08-17 08:35] VITALS: TEMP 97.9
[2017-08-17] MEDS: IPRATROPIUM-ALBUTEROL 3 ML NEB INHALATION SCH ×2 (09:02→13:44)
[2017-08-17] MEDS: BUDESONIDE 0.5 MG/2 ML NEBU INHALATION SCH (09:02)
[2017-08-17 09:48] LABS: Basophils % (A) 0 %; CHCM 31.5; Eosinophils # (A) 0.1 k/uL (0-0.7); Eosinophils % (A) 1 %; HDW 2.73; HGB 13.5 gm/dL (11.4-16.0); Hypochromasia Slight; Luc # (Auto) 0.16; Luc % (Auto) 2; Lymphocytes # (A) 1.8 k/uL (1.0-4.8); Lymphocytes % (A) 24 %; MCH 28.3 pg (25.0-35.0); MCHC 30.6 g/dL (31.0-37.0); MCV 92.4 fL (80.0-100.0); Mean Platelet Volume 7.3; Monocytes # (A) 0.5 k/uL (0-1.0); Monocytes % (A) 7 %; Neutrophils # (A) 4.9 k/uL (1.3-7.7); Neutrophils % (A) 65 %; RBC 4.76 m/uL (3.80-5.40); RDW 14.8 % (11.5-15.5); WBC 7.5 k/uL (3.8-10.6); WBC (Perox) 7.27
[2017-08-17 10:16] LABS: Calcium 10.2 mg/dL (8.4-10.2); Total Bilirubin 0.4 mg/dL (0.2-1.3); Total Protein 6.7 g/dL (6.3-8.2)
--- NOTE | 2017-08-17 11:16 | P.PN ---
Subjective This is an 82-year-old female patient of Dr. Jorge Quevedo with a past medical history for diabetes mellitus type 2, hypertension, rheumatoid arthritis, breast cancer status post lumpectomy on the right with lymph node dissection which were negative. She had to have repeat surgery to complete margins. She has refused radiation treatment. She was last admitted from our facility and discharge 07/24/2017 secondary to metabolic encephalopathy with urinary tract infection, urgent hypertension and acute kidney injury, possible early sepsis requiring IV fluid resuscitation and was discharged to home for and [facility] With nursing supervision for medications. Urine culture at that time was negative for any growth, urine WBC at that time was only 1 This time patient presented with mentation changes, headache, was agitated when seen in emergency room,, patient is a very poor historian, per family patient is not acting appropriately, has decreased appetite and decreased responsiveness , per history patient has a headache, blood pressure was 230 systolic upon arrival to emergency room, and was medicated with labetalol and morphine, upon my evaluation in the floor, patient is more drowsy awakens to voice however cannot provide much information short-term memory loss is identified patient denies any pain chest pain or abdominal pain, no hematuria no diarrhea no dysuria, patient was started on Rocephin for appreciably urinary tract infection with a urine WBC of 8, CBC WBC of 8.0 creatinine elevated at 1.25 from a previous of 1.17 during the last admission 3 weeks ago 08/15: Lung discussion occurred with the patient's and daughter regarding plan. Mental status is improved today but patient does have memory loss. Creatinine is 1.26 which is her baseline. Social work consult for ECF placement for tomorrow. 08/16: Today BUN 15 and creatinine 1.14. Family was planning for [facility] which has declined patient admission. They're now looking at [facility] for subacute rehab but patient may need long-term placement as well. Social work has provided [facility] home information to the family. Anticipate discharge by tomorrow. Objective - Vital Signs Vital signs: Vital Signs Temp 97.6 F 08/16/17 07:16 Pulse 56 L 08/16/17 13:28 Resp 16 08/16/17 08:00 BP 180/72 08/16/17 07:16 Pulse Ox 95 08/16/17 08:33 Intake & Output 08/15/17 08/16/17 08/16/17 18:59 06:59 18:59 Intake Total 0 Balance 0 Weight 79.832 kg Intake: Oral 0 Other: Voiding Method Bedpan Toilet Bedpan Bedpan Incontinent # Voids 2 4 - Exam General appearance: cooperative, no acute distress - EENT Eyes: anicteric sclerae, EOMI, PERRLA, normal appearance ENT: hard of hearing, normal oropharynx - Neck Neck: no lymphadenopathy, normal ROM, no other, no rigidity, no stridor, no thyromegaly - Respiratory Respiratory: bilateral: CTA, negative: diminished, dullness, rales, rhonchi - Cardiovascular Rhythm: regular Heart sounds: normal: S1, S2 - Gastrointestinal General gastrointestinal: normal bowel sounds, soft - Integumentary Integumentary: decreased turgor, normal - Musculoskeletal Musculoskeletal: strength equal bilaterally - Psychiatric Psychiatric: appropriate affect - Labs CBC & Chem 7: 08/17/17 09:02 08/17/17 09:02 Labs: Abnormal Lab Results - Last 24 Hours (Table) 08/15/17 08/16/17 08/16/17 Range/Units 17:38 07:20 08:16 MCHC 30.9 L (31.0-37.0) g/dL Creatinine (0.52-1.04) mg/dL Glucose (74-99) mg/dL POC Glucose (mg/dL) 164 H 204 H (75-99) mg/dL Calcium (8.4-10.2) mg/dL 08/16/17 08/16/17 Range/Units 08:16 11:23 MCHC (31.0-37.0) g/dL Creatinine 1.14 H (0.52-1.04) mg/dL Glucose 214 H (74-99) mg/dL POC Glucose (mg/dL) 199 H (75-99) mg/dL Calcium 10.4 H (8.4-10.2) mg/dL Microbiology - Last 24 Hours (Table) 08/14/17 12:50 Urine Culture - Final Urine,Catheterized Assessment and Plan Plan: 1. Metabolic encephalopathy secondary to hypertensive emergency requiring IV labetalol and acute kidney injury. , Hydralazine 10 mg every 4 when necessary for systolic over 160,. Change the valsartan to valsartan 160 mg daily monitor for any neurologic decline including cardiovascular symptoms, and pulmonary edema 2. Urinary tract infection post IV fluid resuscitation. Ceftriaxone will be continued. Urine culture is in progress. Monitor for progressive decline including sepsis 3. Urgent hypertension in patient with history of hypertension. Patient was given labetalol in the emergency center. Continue atenolol 25 mg daily, changed to losartan to valsartan 160 mg secondary to uncontrolled hypertension, this can be titrated up to twice a day, Hydrochlorothiazide discontinued. 4. Chronic kidney disease stage 3 with proteinuria most likely secondary to diabetes mellitus. Hydrochlorothiazide discontinued. Continue gentle rehydration. Recheck lab work in the morning, avoid nephrotoxins. 5. Diabetes mellitus type 2, insulin requiring. Levemir will be changed to12 units daily continue Humalog at 9 units with meals and per scale. 6. Hypomagnesemia, placements in progress 7. Breast cancer. Continue Arimidex 1 mg daily. 8. Hyperlipidemia. Continue Lipitor 10 mg twice weekly. 9. Mild persistent asthma. Continue DuoNeb treatments and Pulmicort. 10. Gastroesophageal reflux disease. Continue Prilosec 20 mg daily. 11. Rheumatoid arthritis. Continue prednisone 1 mg every 48 hours. 12. DVT prophylaxis. Continue Lovenox 30 mg daily, dose adjusted for renal function 13. Debility, unknown community assistive devices, patient has a walker however this is not confirmed, PT OT will be seeing the patient,. Discharge plan: ECF tomorrow. PT and OT. Impression and plan of care have been directed as dictated by the signing physician. Tati Hutton nurse practitioner acting as scribe for signing physician.
--- NOTE | 2017-08-17 11:18 | P.DS ---
Providers Date of admission: 08/14/17 14:58 Expected date of discharge: 08/16/17 Attending physician: Bella Dalal Primary care physician: Jorge Quevedo [facility] Course: This is an 82-year-old female patient of Dr. Jorge Quevedo with a past medical history for diabetes mellitus type 2, hypertension, rheumatoid arthritis, breast cancer status post lumpectomy on the right with lymph node dissection which were negative. She had to have repeat surgery to complete margins. She has refused radiation treatment. She was last admitted from our facility and discharge 07/24/2017 secondary to metabolic encephalopathy with urinary tract infection, urgent hypertension and acute kidney injury, possible early sepsis requiring IV fluid resuscitation and was discharged to home for and currently stays [facility] with the With nursing supervision for medications. Urine culture at that time was negative for any growth, urine WBC at that time was only 1 This time patient presented with mentation changes, headache, was agitated when seen in emergency room,, patient is a very poor historian, per family patient is not acting appropriately, has decreased appetite and decreased responsiveness , per history patient has a headache, blood pressure was 230 systolic upon arrival to emergency room, and was medicated with labetalol and morphine, upon my evaluation in the floor, patient is more drowsy awakens to voice however cannot provide much information short-term memory loss is identified patient denies any pain chest pain or abdominal pain, no hematuria no diarrhea no dysuria, patient was started on Rocephin for appreciably urinary tract infection with a urine WBC of 8, CBC WBC of 8.0 creatinine elevated at 1.25 from a previous of 1.17 during the last admission 3 weeks ago 08/15: Lung discussion occurred with the patient's and daughter regarding plan. Mental status is improved today but patient does have memory loss. Creatinine is 1.26 which is her baseline. Social work consult for ECF placement for tomorrow. 08/16: Today BUN 15 and creatinine 1.14. Family was planning for [facility] which has declined patient admission. They're now looking at [facility] for subacute rehab but patient may need long-term placement as well. Social work has provided [facility] home information to the family. Anticipate discharge by tomorrow. 08/17: Patient seems to be sleeping well with Seroquel. Her mental status is much improved today. She is able to eat on her own and patient is noted to be reading. Patient will be discharged to ECF today in stable condition. Discharge diagnoses: 1. Metabolic encephalopathy secondary to hypertensive emergency requiring IV labetalol 2. Urinary tract infection 3. Urgent hypertension in patient with history of hypertension. 4. Chronic kidney disease stage 3 with proteinuria most likely secondary to diabetes mellitus. 5. Diabetes mellitus type 2, insulin requiring. 6. Hypomagnesemia 7. Breast cancer. 8. Hyperlipidemia. 9. Mild persistent asthma. 10. Gastroesophageal reflux disease. 11. Rheumatoid arthritis. Discharge plan: [facility]. Impression and plan of care have been directed as dictated by the signing physician. Tati Hutton nurse practitioner acting as scribe for signing physicia Cc: Dr. Jorge Quevedo Patient Condition at Discharge: Good Plan - Discharge Summary New Discharge Prescriptions: New Ketotifen 0.025% Ophth Soln [Zaditor] 1 drops RIGHT EYE BID bottle Magnesium Oxide [Mag-Ox] 400 mg PO BID tab QUEtiapine [SEROquel] 25 mg PO HS tab Continue predniSONE 1 mg PO Q48H Simvastatin [Zocor] 20 mg PO SUTH Cholecalciferol [Vitamin D3] 1,000 unit PO DAILY Acetaminophen [Tylenol Extra Strength] 500 mg PO DAILY PRN PRN Reason: Pain Anastrozole [Arimidex] 1 mg PO DAILY Omeprazole [PriLOSEC] 20 mg PO DAILY Ipratropium-Albuterol Nebulize [Duoneb 0.5 mg-3 mg/3 ml Soln] 3 ml INHALATION RT-TID Budesonide [Pulmicort] 0.5 mg INHALATION RT-BID Losartan [Cozaar] 100 mg PO DAILY #30 tab Insulin Detemir [Levemir Flextouch] 35 unit SQ DAILY #0 Insulin Lispro [humaLOG Kwikpen] 9 unit SQ TID-W/MEALS #0 Metoprolol Tartrate [Lopressor] 25 mg PO DAILY Discontinued Zolpidem [Ambien] 10 mg PO HS Hydrocodone/Acetaminophen [[place] 7.5-325] 1 tab PO DAILY Discharge Medication List Acetaminophen [Tylenol Extra Strength] 500 mg PO DAILY PRN 07/21/17 [History] Anastrozole [Arimidex] 1 mg PO DAILY 07/21/17 [History] Budesonide [Pulmicort] 0.5 mg INHALATION RT-BID 07/21/17 [History] Cholecalciferol [Vitamin D3] 1,000 unit PO DAILY 07/21/17 [History] Ipratropium-Albuterol Nebulize [Duoneb 0.5 mg-3 mg/3 ml Soln] 3 ml INHALATION RT -TID 07/21/17 [History] Omeprazole [PriLOSEC] 20 mg PO DAILY 07/21/17 [History] Simvastatin [Zocor] 20 mg PO SUTH 07/21/17 [History] predniSONE 1 mg PO Q48H 07/21/17 [History] Insulin Detemir [Levemir Flextouch] 35 unit SQ DAILY #0 07/24/17 [Rx] Insulin Lispro [humaLOG Kwikpen] 9 unit SQ TID-W/MEALS #0 07/24/17 [Rx] Losartan [Cozaar] 100 mg PO DAILY #30 tab 07/24/17 [Rx] Metoprolol Tartrate [Lopressor] 25 mg PO DAILY 08/14/17 [History] Ketotifen 0.025% Ophth Soln [Zaditor] 1 drops RIGHT EYE BID bottle 08/17/17 [Rx ] Magnesium Oxide [Mag-Ox] 400 mg PO BID tab 08/17/17 [Rx] QUEtiapine [SEROquel] 25 mg PO HS tab 08/17/17 [Rx] Follow up Appointment(s)/Referral(s): Jorge Quevedo MD [Primary Care Provider] - 1 Week (After discharge from alf) Patient Instructions/Handouts: Altered Mental Status (ED)
[2017-08-17 12:17] LABS: Glucose,Whole Blood 227 mg/dL (75-99)
[2017-08-17 14:42] VITALS: BP 165/72; PULSE 120; RESP 18
[2017-08-17] MEDS ORDERED: ATORVASTATIN 10 MG TAB PO SCH (21:00)
== END 2017-08-17 16:11 | DRG 304 ==
LOC: EC 10:22 → 4MS4W 14:58
PROVIDERS: ADMIT Internal Medicine; ATTEND Internal Medicine
DX: I16.1 Hypertensive emergency (principal); G93.41 Metabolic encephalopathy; N17.9 Acute kidney failure, unspecified; F05 Delirium due to known physiological condition; N39.0 Urinary tract infection, site not specified; E11.22 Type 2 diabetes mellitus with diabetic chronic kidney disease; C50.919 Malignant neoplasm of unspecified site of unspecified female breast; E78.5 Hyperlipidemia, unspecified; E83.42 Hypomagnesemia; I12.9 Hypertensive chronic kidney disease with stage 1 through stage 4 chronic kidney disease, or unspecified chronic kidney disease; J45.30 Mild persistent asthma, uncomplicated; K21.9 Gastro-esophageal reflux disease without esophagitis; M06.9 Rheumatoid arthritis, unspecified; N18.3 Chronic kidney disease, stage 3 (moderate); R41.3 Other amnesia; Z79.4 Long term (current) use of insulin; Z79.811 Long term (current) use of aromatase inhibitors; Z79.899 Other long term (current) drug therapy; Z88.6 Allergy status to analgesic agent; Z88.8 Allergy status to other drugs, medicaments and biological substances; Z96.652 Presence of left artificial knee joint; Z96.612 Presence of left artificial shoulder joint; Z87.891 Personal history of nicotine dependence; Z82.49 Family history of ischemic heart disease and other diseases of the circulatory system; Z80.0 Family history of malignant neoplasm of digestive organs
CPT/HCPCS: 36415; 70450; 71020; 80053; 81001; 82140; 82550; 82553; 83036; 83605; 83735; 84100; 84443; 84484; 85025; 85610; 85730; 87086; 93005; 94640; 94760; 96365; 96366; 96375; 99285